=== PATIENT | male | born 1960 | race Caucasian/White ===

== ENCOUNTER 2017-06-15 21:20 | Inpatient (IN) | payer BC ==
[2017-06-15 23:21] LABS: Troponin I 6.575 ng/mL (< 0.028)
[2017-06-15] MEDS ORDERED: Acetaminophen 325 MG TAB PO PRN (23:24)
[2017-06-15] MEDS ORDERED: Senokot 8.6 MG TAB PO PRN (23:24)
[2017-06-15] MEDS ORDERED: Nitroglycerin 0.4 MG TAB (25 Tab Bottle) SL PRN (23:24)
[2017-06-15] MEDS ORDERED: Calcium Carbonate 500 MG ChewTAB PO PRN (23:24)
[2017-06-15] MEDS ORDERED: Morphine 5 MG/ML SYRINGE SLOW IVP PRN (23:24)
[2017-06-15] MEDS ORDERED: Enoxaparin Sodium 120 MG/0.8 ML SYRINGE SC SCH (23:45)
[2017-06-15] MEDS ORDERED: Metoprolol Tartrate 25 MG TAB PO SCH (23:45)
[2017-06-16] MEDS: Nitroglycerin 2% Ointment 1 INCH/1 GM Packet TOP SCH ×5 (00:11→23:48)
[2017-06-16] MEDS: Sodium Chloride 0.9% 1,000 ML IV SCH ×2 (00:14→20:45)
--- NOTE | 2017-06-16 00:49 | HP ---
DATE OF ADMISSION: 06/15/2017 Patient was seen and examined on 06/15/2017 CHIEF COMPLAINT: Chest discomfort. PRIMARY CARE PHYSICIAN: Dr. Montero. Patient is a transfer from [facility]. HISTORY OF PRESENT ILLNESS: Patient is a 56-year-old male with obstructive sleep apnea, diabetes gadiel litus type 2, and hyperlipidemia who presented to the above emergency room with chest discomfort that started this afternoon. It was pressure-like, substernal, radiating to his left arm. It was 8/10 i nitially and improved with nitroglycerin. He felt short of breath; however, denies any nausea, vomit ing, or diaphoresis. No recent immobilization, travel, syncope reported. In the emergency room, his EKG showed normal sinus rhythm without significant ST-T wave changes. Kalie st x-ray was negative. His initial troponin was negative. He was transferred to this facility for h ospital admission. PAST MEDICAL HISTORY: 1. Diabetes mellitus, type 2. 2. Hyperlipidemia. 3. Obesity with BMI 32.7. 4. Obstructive sleep apnea. 5. Anxiety. 6. Chronic low back pain. PAST SURGICAL HISTORY: 1. Back surgery x2. 2. Hernia repair. 3. Laparoscopic sleeve gastrectomy. 4. Left shoulder surgery. ALLERGIES: No known drug allergies. CURRENT HOME MEDICATIONS: Family to bring accurate list of medications. According to Dr. Montero's o ffice record, patient takes bupropion 100 mg daily, Celebrex 200 mg daily, citalopram 40 mg daily, an d testosterone injectable every 2 weeks. SOCIAL HISTORY: Patient currently lives at home with his family. He is a former tobacco user (chewe d tobacco). He denies any drug use. He drinks alcohol socially. FAMILY HISTORY: Negative for premature coronary artery disease. REVIEW OF SYSTEMS: The following complete review of systems was negative, unless otherwise mentioned in the HPI or below: Constitutional: Weight loss or gain, ability to conduct usual activities. Sk in: Rash, itching. Eyes: Double vision, pain. ENT/Mouth: Nose bleeding, neck stiffness, pain, te nderness. Cardiovascular: Palpitations, dyspnea on exertion, orthopnea. Respiratory: Shortness of breath, wheezing, cough, hemoptysis, fever or night sweats. Gastrointestinal: Poor appetite, abdom inal pain, heartburn, nausea, vomiting, constipation, or diarrhea. Genitourinary: Urgency, frequenc y, dysuria, nocturia. Musculoskeletal: Pain, swelling. Neurologic/Psychiatric: Anxiety, depressio n. Allergy/Immunologic: Skin rash, bleeding tendency. PHYSICAL EXAMINATION: VITAL SIGNS: In the emergency room, temperature 98.4, respirations 16, pulse rate of 59, blood press ure 119/73 with O2 saturation 98% on room air. GENERAL: A 56-year-old male in no apparent distress. Still has some discomfort around 3/10. HEENT: Head atraumatic, normocephalic. Sclerae anicteric. Moist mucous membranes. No oral lesion. NECK: Supple, no JVD appreciated. No carotid bruit. LUNGS: Clear to auscultation bilaterally. HEART: S1, S2 present. Regular rate and rhythm. No murmur, rubs, or gallops appreciated. No repro ducible chest wall tenderness. ABDOMEN: Soft, nontender, bowel sounds present. EXTREMITIES: No edema or calf tenderness. NEUROLOGIC: Grossly nonfocal, moves all four extremities. PSYCHIATRY: Alert, awake, oriented x3. SKIN: Warm and dry. LYMPH NODES: No palpable lymph nodes in the neck. PERIPHERAL VASCULAR: Radial pulses palpable bilaterally. MUSCULOSKELETAL: No joint swelling or tenderness. LABORATORY AND X-RAY FINDINGS: Labs from [facility], CBC showed WBC 6.6 with hemog lobin 15.6, platelet 204. Chemistries showed sodium 140, potassium 4.1, chloride 103, bicarbonate 27 , creatinine was 0.8, BUN of 16. Initial troponin was 0.17 with CK-MB 5.5. EKG by my review as disc ussed above. Chest x-ray at the outside facility was negative for infiltrate. Repeat troponin at th is time is 6.575 at 2241. This was after I evaluated the patient. IMPRESSION AND PLAN: 1. Non-ST elevation myocardial infarction. 2. Obesity with a BMI 32.7. 3. Diabetes mellitus, type 2. 4. Dyslipidemia. 5. Obstructive sleep apnea. 6. Depression. 7. Degenerative joint disease. PLAN: Patient will be monitored in the telemetry unit. Cardiology will be consulted. We will maribell nue aspirin. We will start him on 1 mg/kg of Lovenox. We will add low-dose beta blockers. We will start him on Lipitor at low dose and titrate in next couple of days. We will consider adding LIZETH inh ibitor in a.m. depending on his blood pressure. We will keep him n.p.o. past midnight. Fasting lipi d profile last month showed triglyceride 151, cholesterol 247, LDL of 173 with HDL of 44. Plan of care was discussed with the patient. He stated understanding.
[2017-06-16 05:46] LABS: #Basophils 0.1 thou/uL (0.0-0.2); #Eosinphils 0.4 thou/uL (0.0-0.7); #Lymphocytes 2.2 thou/uL (1.20-3.40); #Monocytes 0.6 thou/uL (0.11-0.59); #Neutrophils 4.4 thou/uL (1.40-6.50); %Basophils 0.8 % (0.0-1.0); %Eosinophils 4.9 % (0.0-10.0); %Lymphocytes 28.9 % (21.0-51.0); %Monocytes 7.6 % (0.0-10.0); %Neutrophils 57.9 % (42.0-75.0); Hemoglobin 14.4 g/dL (14.0-18.0); Mean Corpuscular HGB CONC 34.3 g/dL (32.0-36.0); Mean Corpuscular Hemoglobin 32.9 pg (27.0-31.0); Mean Platelet Volume 6.8 fL (7.4-10.4); Platelet Count 180 thou/uL (130-400); RBC Distribution Width 11.6 % (11.5-14.5); Red Blood Cell (RBC) Count 4.36 mill/uL (4.70-6.10); White Blood Cell (WBC) Count 7.6 thou/uL (4.8-10.8)
[2017-06-16 05:51] LABS: Anion Gap 10 mmol/L (10-20); BUN (Urea Nitrogen) 17 mg/dL (8.4-25.7); Calc. Creatinine Clearance 151 mL/min (70-130); Calcium 8.7 mg/dL (7.8-10.44); Carbon Dioxide 30 mmol/L (22-29); Chloride 105 mmol/L (98-107); Estimated GFR-MDRD 89; Glucose 95 mg/dL (70-105); Magnesium 2.2 mg/dL (1.6-2.6); Potassium 4.1 mmol/L (3.5-5.1); Sodium 141 mmol/L (136-145)
[2017-06-16 06:00] LABS: CKMB 63.7 ng/mL (0-6.6)
[2017-06-16] MEDS ORDERED: Temazepam 15 MG CAP PO PRN (07:03)
[2017-06-16] MEDS ORDERED: Sodium Chloride 0.65% Nasal 44 ML BOT EA NARE PRN (07:03)
[2017-06-16] MEDS ORDERED: Ondansetron HCl/PF 4 MG/2 ML Vial IVP PRN (07:03)
[2017-06-16] MEDS ORDERED: HYDROcodone/Acetaminophen 5/325 mg Tablet PO PRN (07:03)
[2017-06-16] MEDS ORDERED: Milk Of Magnesia 30 ML UDCUP PO PRN (07:03)
[2017-06-16] MEDS ORDERED: Loperamide HCl 2 MG CAP PO PRN (07:03)
[2017-06-16] MEDS ORDERED: Artificial Tears 18 DROP/0.9 ML EA EYE PRN (07:03)
[2017-06-16] MEDS ORDERED: Eucerin (Mineral Oil/Petrolatum,White) 30 gm Jar TOP PRN (07:03)
[2017-06-16] MEDS ORDERED: Ondansetron ODT 4 MG TAB PO PRN (07:03)
[2017-06-16] MEDS ORDERED: Mag-Al 1200 mg/1200 mg/30 ML UDCUP PO PRN (07:03)
[2017-06-16] MEDS ORDERED: Diabetic Tussin 200 MG/10 ML UDCUP PO PRN (07:03)
[2017-06-16] MEDS ORDERED: hydrALAZINE 20 MG/ML VIAL SLOW IVP PRN (07:03)
[2017-06-16] MEDS ORDERED: Chloraseptic Spray 180 ml Bottle PO PRN (07:03)
[2017-06-16] MEDS ORDERED: Loratadine 10 MG TAB PO PRN (07:03)
[2017-06-16] MEDS ORDERED: CITALOPRAM HYDROBROMIDE 40 MG PO SCH (09:00)
--- NOTE | 2017-06-16 09:17 | PDOC.PN ---
- Subjective Encounter Start Date: 06/16/17 Encounter Start Time: 07:40 -: old records requested/rev pt denies chest pain,dyspnea, palpitation Patient seen and examined. No new complaints. No overnight events - Objective Resuscitation Status: Resuscitation Status FULL:Full Resuscitation MAR Reviewed: Yes Vital Signs & Weight: Vital Signs (12 hours) Temp Pulse Resp BP BP Pulse Ox 06/16/17 07:10 98.5 F 74 18 99 06/16/17 07:05 98.5 F 74 18 107/61 99 06/16/17 05:13 94 L 06/16/17 04:00 97.8 F 54 L 16 104/62 94 L 06/15/17 23:45 96 F L 74 18 134/74 95 06/15/17 23:26 97.7 F 65 18 130/75 95 Weight Weight 247 lb 6.4 oz I&O: 06/15/17 06/16/17 06/17/17 05:59 06:59 06:59 Intake Total Output Total Balance Result Diagrams: 06/16/17 04:51 06/16/17 04:51 EKG Reviewed by me: Yes (NSR) Phys Exam - Physical Examination Constitutional: NAD HEENT: PERRLA, moist MMs, sclera anicteric Neck: no JVD, supple Respiratory: no wheezing, no rales, no rhonchi Cardiovascular: RRR, no significant murmur, no rub Gastrointestinal: soft, non-tender, no distention, positive bowel sounds Musculoskeletal: no edema, pulses present Neurological: non-focal, normal sensation, moves all 4 limbs Psychiatric: normal affect, A&O x 3 Skin: no rash, normal turgor Dx/Plan (1) NSTEMI (non-ST elevated myocardial infarction) Code(s): I21.4 - NON-ST ELEVATION (NSTEMI) MYOCARDIAL INFARCTION Status: Acute (2) Anxiety and depression Code(s): F41.8 - OTHER SPECIFIED ANXIETY DISORDERS Status: Chronic (3) Chronic low back pain Code(s): M54.5 - LOW BACK PAIN; G89.29 - OTHER CHRONIC PAIN Status: Chronic (4) DJD (degenerative joint disease) Code(s): M19.90 - UNSPECIFIED OSTEOARTHRITIS, UNSPECIFIED SITE Status: Chronic (5) Diabetes type 2, controlled Code(s): E11.9 - TYPE 2 DIABETES MELLITUS WITHOUT COMPLICATIONS Status: Chronic (6) OLESYA (obstructive sleep apnea) Code(s): G47.33 - OBSTRUCTIVE SLEEP APNEA (ADULT) (PEDIATRIC) Status: Chronic (7) Obesity (BMI 30.0-34.9) Code(s): E66.9 - OBESITY, UNSPECIFIED Status: Chronic - Plan cont current plan of care * medication reviewed as below * symptomatic treatment * cardiology consulted * echo * currently on medical therapy for nstemi * will need cardiac cath * discussed with family. Review of Systems - Review of Systems Constitutional: negative: fever, chills, sweats, weakness, malaise, other Eyes: negative: Pain, Vision Change, Conjunctivae Inflammation, Eyelid Inflammation, Redness, Other ENT: negative: Ear Pain, Ear Discharge, Nose Pain, Nose Discharge, Nose Congestion, Mouth Pain, Mouth Swelling, Throat Pain, Throat Swelling, Other Respiratory: negative: Cough, Dry, Shortness of Breath, Hemoptysis, SOB with Excertion, Pleuritic Pain, Sputum, Wheezing Cardiovascular: negative: chest pain, palpitations, orthopnea, paroxysmal nocturnal dyspnea, edema, light headedness, other Gastrointestinal: negative: Nausea, Vomiting, Abdominal Pain, Diarrhea, Constipation, Melena, Hematochezia, Other Genitourinary: negative: Dysuria, Frequency, Incontinence, Hematuria, Retention , Other Musculoskeletal: negative: Neck Pain, Shoulder Pain, Arm Pain, Back Pain, Hand Pain, Leg Pain, Foot Pain, Other Skin: negative: Rash, Lesions, Prince, Bruising, Other - Medications/Allergies Allergies/Adverse Reactions: Allergies Allergy/AdvReac Type Severity Reaction Status Date / Time No Known Allergies Allergy Verified 06/16/17 00:22 Medications: Current Medications Acetaminophen (Tylenol) 650 mg PO Q4H PRN PRN Reason: Headache/Fever or Pain Hydrocodone Bitart/Acetaminophen ([place] 5/325) 1 tab PO Q4H PRN PRN Reason: Moderate Pain (4-6) Al Hydroxide/Mg Hydroxide (Maalox) 15 ml PO Q4H PRN PRN Reason: Heartburn or Indigestion Artificial Tears (Tears Naturale) 0 drop EA EYE PRN PRN PRN Reason: Dry Eyes Aspirin (Aspirin) 325 mg PO DAILY COUNT [facility]CLUDES [facility] Atorvastatin Calcium (Lipitor) 40 mg PO HS COUNT INCLUDES THE [facility] Bupropion HCl (Wellbutrin) 100 mg PO DAILY COUNT INCLUDES [facility] Calcium Carbonate (Tums) 1,000 mg PO Q4H PRN PRN Reason: Heartburn or Indigestion Citalopram Hydrobromide (Celexa) 40 mg PO DAILY COUNT INCLUDES [facility] Docusate Sodium (Colace) 100 mg PO BID COUNT INCLUDES THE [facility] Enoxaparin Sodium (Lovenox) 110 mg SC 0900,2100 COUNT INCLUDES THE [facility] Famotidine (Pepcid) 20 mg PO BID COUNT INCLUDES THE [facility] Guaifenesin (Robitussin Sf) 200 mg PO Q4H PRN PRN Reason: Cough Hydralazine HCl (Apresoline) 10 mg SLOW IVP Q4H PRN PRN Reason: Systolic BP > 180 Sodium Chloride (Normal Saline 0.9%) 1,000 mls @ 50 mls/hr IV .Q20H COUNT INCLUDES THE [facility] Last Admin: 06/16/17 00:14 Dose: 1,000 mls Loperamide HCl (Imodium) 2 mg PO PRN PRN PRN Reason: Diarrhea/Loose Stools Loratadine (Claritin) 10 mg PO DAILYPRN PRN PRN Reason: Sinus Symptoms Magnesium Hydroxide (Milk Of Magnesium) 30 ml PO DAILYPRN PRN PRN Reason: Constipation Metoprolol Tartrate (Lopressor) 12.5 mg PO BID COUNT INCLUDES THE [facility] Mineral Oil/White Petrolatum (Eucerin Cream) 0 gm TOP BIDPRN PRN PRN Reason: Dry Skin Morphine Sulfate (Morphine) 2 mg SLOW IVP Q5MIN PRN PRN Reason: Chest Pain Stop: 06/16/17 23:25 Nitroglycerin (Nitrostat) 0.4 mg SL Q5MIN PRN PRN Reason: Chest Pain Nitroglycerin (Nitro-Bid 2% Ointment) 0.5 inch TOP Q6HR COUNT INCLUDES [facility] Last Admin: 06/16/17 06:55 Dose: 0.5 inch Ondansetron HCl (Zofran Odt) 4 mg PO Q6H PRN PRN Reason: Nausea/Vomiting Ondansetron HCl (Zofran) 4 mg IVP Q6H PRN PRN Reason: Nausea/Vomiting Phenol (Chloraseptic [place] 180 Ml Bot) 0 ml PO PRN PRN PRN Reason: Sore Throat Senna (Senokot) 2 tab PO HSPRN PRN PRN Reason: Constipation Sodium Chloride (Flush - Normal Saline) 10 ml IVF Q12HR COUNT INCLUDES THE [facility] Sodium Chloride (Flush - Normal Saline) 10 ml IVF PRN PRN PRN Reason: Saline Flush Sodium Chloride ([place] Nasal [place] 0.65%) 0 ml EA NARE QIDPRN PRN PRN Reason: Nasal Congestion Temazepam (Restoril) 15 mg PO HSPRN PRN PRN Reason: Insomnia
[2017-06-16] MEDS: Citalopram 20 MG TAB PO SCH (10:29)
[2017-06-16] MEDS: Famotidine 20 MG TAB PO SCH ×2 (10:29→20:46)
[2017-06-16] MEDS: Enoxaparin Sodium 120 MG/0.8 ML SYRINGE SC SCH ×2 (10:29→20:46)
[2017-06-16] MEDS: Aspirin 325 MG TAB PO SCH (10:30)
[2017-06-16] MEDS: Docusate 100 MG CAP PO SCH ×2 (10:30→20:46)
[2017-06-16] MEDS: Metoprolol Tartrate 25 MG TAB PO SCH ×2 (10:30→20:46)
[2017-06-16] MEDS: buPROPion HCl 100 MG TAB PO SCH (10:31)
[2017-06-16] MEDS ORDERED: Diazepam 5 MG TAB PO SCH (12:00)
[2017-06-16] MEDS ORDERED: Communication Order-Pharmacy FS SCH (12:00)
--- NOTE | 2017-06-16 12:48 | CON ---
DATE OF CONSULTATION: 06/16/2017 REASON FOR CONSULTATION: Non-Q NV. HISTORY OF PRESENT ILLNESS: Mr. Rivas is a very pleasant 56-year-old gentleman. He states he recentl y had an episode of chest pain. This lasted up to 2 hours. He was given nitroglycerin and aspirin i n the ER with improvement. He states he has been pain free since 9:00 p.m. last evening. No previou s history of underlying coronary artery disease. PAST MEDICAL HISTORY: Diabetes mellitus, hyperlipidemia, obstructive sleep apnea and chronic low jodi k pain. PAST SURGICAL HISTORY: Sleeve gastrectomy, hernia repair, back surgery and left shoulder surgery. ALLERGIES: None. HOME MEDICATIONS: Include Celebrex, citalopram and testosterone. SOCIAL HISTORY: No current tobacco or alcohol use. REVIEW OF SYSTEMS: Ten-point review of systems is reviewed and as above, otherwise negative. PHYSICAL EXAMINATION: GENERAL: Patient is a pleasant male who is in no acute distress. The patient appears his stated age . VITAL SIGNS: Blood pressure 107/61, pulse 74 and temperature 98.5. NEUROLOGIC: The patient is alert and oriented x3 with no focal neurologic deficits. HEENT: Sclerae without icterus. Mouth has moist mucous membranes with normal pallor. NECK: No JVD. Carotid upstroke brisk. No bruits bilaterally. LUNGS: Clear to auscultation with unlabored respirations. BACK: No scoliosis or kyphosis. CARDIAC: Regular rate and rhythm with normal S1 and S2. No S3 or S4 noted. No significant rubs, mu rmurs, thrills, or gallops noted throughout the precordium. PMI is not displaced. There is no dori ternal heave. ABDOMEN: Soft, nontender, nondistended. No peritoneal signs present. No hepatosplenomegaly. No ab normal striae. EXTREMITIES: 2+ femoral and 2+ dorsalis pedis pulses. No cyanosis, clubbing, or edema. SKIN: No gross abnormalities. PERTINENT LABORATORY DATA: Hemoglobin 14.4 and hematocrit 41.9. Peak troponin 29.2, peak MB of 63 a nd creatinine 0.89. IMAGING DATA: EKG normal sinus rhythm, normal EKG. IMPRESSION: Non-Q myocardial infarction. RECOMMENDATIONS: Mr. Rivas does have multiple risks factors for underlying coronary artery disease. His troponin is elevated. His EKG is not felt to be suggestive of acute myocardial infarction. He h as received Lovenox in addition to aspirin and beta-brice therapy. At this point, I recommend sobeida nary angiography with possible PCI. I discussed the procedure in full detail with Mr. Rivas. Risks i ncluded, but are not limited to the following: , stroke, NV, need for emergency surgery, loss o f limb, bleeding, and infection, as well as a reaction to the dye causing kidney failure and needing long-term dialysis. I also discussed the risks of PCI to include all of the above including coronary dissection and perforation in addition to acute stent thrombosis and restenosis. All questions abou t the procedure were answered. Given the above, the patient agreed to proceed with coronary angiogra phy and possible PCI. All questions were answered. I also discussed drug-coated and nondrug coated stent placement. He does have chronic low back pain and I did answer multiple questions about the ba ck injections. At this point, if he decides to proceed with a drug-coated stent, there will be no ba ck injections for at least a year. He understands and would like to proceed with a drug-coated stent if needed. Further recommendations pending the above.
[2017-06-16 12:50] LABS: CKMB 57.2 ng/mL (0-6.6); Critical Call CKMBM RESULT DECREASING; Critical Call Chem Troponin I RESULT DECREASING; Troponin I 21.386 ng/mL (< 0.028)
[2017-06-16] MEDS: Atorvastatin Calcium 40 MG TAB PO SCH (20:46)
[2017-06-16] MEDS ORDERED: Atorvastatin Calcium 10 MG TAB PO SCH (21:00)
[2017-06-17] MEDS ORDERED: Lidocaine 1% (PF) 30 ML VIAL ONE (05:01)
[2017-06-17] MEDS: Nitroglycerin 2% Ointment 1 INCH/1 GM Packet TOP SCH ×3 (05:25→17:25)
[2017-06-17] MEDS: Famotidine 20 MG TAB PO SCH ×2 (05:26→21:35)
[2017-06-17] MEDS: Aspirin 325 MG TAB PO SCH (05:26)
[2017-06-17] MEDS: Docusate 100 MG CAP PO SCH ×2 (05:26→21:35)
[2017-06-17] MEDS: buPROPion HCl 100 MG TAB PO SCH (05:26)
[2017-06-17] MEDS: Citalopram 20 MG TAB PO SCH (05:26)
[2017-06-17] MEDS: Metoprolol Tartrate 25 MG TAB PO SCH ×2 (05:27→21:36)
[2017-06-17 05:49] LABS: #Eosinphils 0.5 thou/uL (0.0-0.7); #Lymphocytes 1.6 thou/uL (1.20-3.40); #Monocytes 0.5 thou/uL (0.11-0.59); #Neutrophils 3.8 thou/uL (1.40-6.50); %Basophils 0.7 % (0.0-1.0); %Eosinophils 7.1 % (0.0-10.0); %Lymphocytes 24.8 % (21.0-51.0); %Monocytes 7.7 % (0.0-10.0); %Neutrophils 59.7 % (42.0-75.0); Hemoglobin 14.3 g/dL (14.0-18.0); Mean Corpuscular Hemoglobin 32.8 pg (27.0-31.0); Mean Corpuscular Volume 93.7 fl (80.0-94.0); Mean Platelet Volume 6.7 fL (7.4-10.4); Platelet Count 170 thou/uL (130-400); RBC Distribution Width 11.5 % (11.5-14.5); Red Blood Cell (RBC) Count 4.36 mill/uL (4.70-6.10); White Blood Cell (WBC) Count 6.4 thou/uL (4.8-10.8)
[2017-06-17] MEDS ORDERED: Sodium Chloride 0.9% 1,000 ML IV SCH (06:00)
[2017-06-17 06:07] LABS: ALT (SGPT) 34 U/L (8-55); AST (SGOT) 53 U/L (5-34); Albumin 3.8 g/dL (3.5-5.0); Alkaline Phosphatase 54 U/L (40-150); Anion Gap 11 mmol/L (10-20); BUN (Urea Nitrogen) 16 mg/dL (8.4-25.7); Bilirubin, Total 0.6 mg/dL (0.2-1.2); Calc. Creatinine Clearance 165 mL/min (70-130); Calcium 8.8 mg/dL (7.8-10.44); Carbon Dioxide 27 mmol/L (22-29); Cardiac Risk 6.2 (Less than 4.5); Chloride 106 mmol/L (98-107); Cholesterol 181 mg/dl (< 200 Desired); Estimated GFR-MDRD Greater than 90; Globulin 1.8 g/dL (2.4-3.5); Glucose 88 mg/dL (70-105); HDL Cholesterol 29 mg/dL (>60 Neg Risk); LDL Cholesterol, Calculated 121 mg/dL; Potassium 3.9 mmol/L (3.5-5.1); Protein, Total 5.6 g/dL (6.0-8.3); Sodium 140 mmol/L (136-145); Triglycerides 155 mg/dL (Less than 150)
[2017-06-17] MEDS ORDERED: Midazolam HCl 2 mg/2 ml Vial ONE (06:23)
[2017-06-17] MEDS ORDERED: Fentanyl 100 MCG/2 ML VIAL ONE (06:23)
[2017-06-17] MEDS ORDERED: Acetaminophen/Codeine 30-300mg Tablet PO PRN ×2 (06:45)
[2017-06-17] MEDS ORDERED: Sodium Chloride 0.9% 200 ML IV SCH (06:45)
[2017-06-17] MEDS ORDERED: Nitroglycerin 0.4 MG TAB (25 Tab Bottle) SL PRN (06:45)
[2017-06-17] MEDS ORDERED: traMADol HCl 50 MG TAB PO PRN (06:45)
[2017-06-17] MEDS: Sodium Chloride 0.9% 1,000 ML IV SCH ×3 (07:26→21:37)
--- NOTE | 2017-06-17 09:44 | PDOC.PN ---
- Subjective Encounter Start Date: 06/17/17 Encounter Start Time: 07:50 Patient seen and examined. No new complaints. No overnight events s/p cardiac cath- found with multivessel cad - Objective Resuscitation Status: Resuscitation Status FULL:Full Resuscitation MAR Reviewed: Yes Vital Signs & Weight: Vital Signs (12 hours) Temp Pulse Resp BP Pulse Ox 06/17/17 07:30 98.4 F 70 16 123/73 96 06/17/17 06:44 96 06/17/17 04:15 98.2 F 74 16 128/68 93 L 06/16/17 23:50 67 118/72 Weight Weight 246 lb 11.2 oz I&O: 06/16/17 06/17/17 06/18/17 06:59 06:59 06:59 Intake Total 1963 Output Total 1050 Balance 913 Result Diagrams: 06/17/17 04:47 06/17/17 03:30 EKG Reviewed by me: Yes Phys Exam - Physical Examination Constitutional: NAD HEENT: PERRLA, moist MMs, sclera anicteric Neck: no JVD, supple Respiratory: no wheezing, no rales, no rhonchi Cardiovascular: RRR, no significant murmur, no rub Gastrointestinal: soft, non-tender, no distention, positive bowel sounds Musculoskeletal: no edema, pulses present Neurological: non-focal, normal sensation, moves all 4 limbs Psychiatric: normal affect, A&O x 3 Skin: no rash, normal turgor Dx/Plan (1) NSTEMI (non-ST elevated myocardial infarction) Code(s): I21.4 - NON-ST ELEVATION (NSTEMI) MYOCARDIAL INFARCTION Status: Acute (2) Anxiety and depression Code(s): F41.8 - OTHER SPECIFIED ANXIETY DISORDERS Status: Chronic (3) Chronic low back pain Code(s): M54.5 - LOW BACK PAIN; G89.29 - OTHER CHRONIC PAIN Status: Chronic (4) DJD (degenerative joint disease) Code(s): M19.90 - UNSPECIFIED OSTEOARTHRITIS, UNSPECIFIED SITE Status: Chronic (5) Diabetes type 2, controlled Code(s): E11.9 - TYPE 2 DIABETES MELLITUS WITHOUT COMPLICATIONS Status: Chronic (6) OLESYA (obstructive sleep apnea) Code(s): G47.33 - OBSTRUCTIVE SLEEP APNEA (ADULT) (PEDIATRIC) Status: Chronic (7) Obesity (BMI 30.0-34.9) Code(s): E66.9 - OBESITY, UNSPECIFIED Status: Chronic (8) 3-vessel coronary artery disease Status: Acute (9) Dyslipidemia Code(s): E78.5 - HYPERLIPIDEMIA, UNSPECIFIED Status: Chronic - Plan cont current plan of care, plan discussed w/ family * CABG recommended * medication reviewed as below * symptomatic treatment * currently on optimum medical therapy * discussed with . Review of Systems - Review of Systems Eyes: negative: Pain, Vision Change, Conjunctivae Inflammation, Eyelid Inflammation, Redness, Other ENT: negative: Ear Pain, Ear Discharge, Nose Pain, Nose Discharge, Nose Congestion, Mouth Pain, Mouth Swelling, Throat Pain, Throat Swelling, Other Respiratory: negative: Cough, Dry, Shortness of Breath, Hemoptysis, SOB with Excertion, Pleuritic Pain, Sputum, Wheezing Cardiovascular: negative: chest pain, palpitations, orthopnea, paroxysmal nocturnal dyspnea, edema, light headedness, other Gastrointestinal: negative: Nausea, Vomiting, Abdominal Pain, Diarrhea, Constipation, Melena, Hematochezia, Other Genitourinary: negative: Dysuria, Frequency, Incontinence, Hematuria, Retention , Other Musculoskeletal: negative: Neck Pain, Shoulder Pain, Arm Pain, Back Pain, Hand Pain, Leg Pain, Foot Pain, Other Skin: negative: Rash, Lesions, Prince, Bruising, Other - Medications/Allergies Allergies/Adverse Reactions: Allergies Allergy/AdvReac Type Severity Reaction Status Date / Time No Known Allergies Allergy Verified 06/16/17 00:22 Medications: Current Medications Acetaminophen (Tylenol) 650 mg PO Q4H PRN PRN Reason: Headache/Fever or Pain Acetaminophen/Codeine Phosphate (Tylenol #3) 1 tab PO Q4H PRN PRN Reason: Mild Pain (1-3) Acetaminophen/Codeine Phosphate (Tylenol #3) 2 tab PO Q4H PRN PRN Reason: Moderate Pain (4-6) Hydrocodone Bitart/Acetaminophen ([place] 5/325) 1 tab PO Q4H PRN PRN Reason: Moderate Pain (4-6) Al Hydroxide/Mg Hydroxide (Maalox) 15 ml PO Q4H PRN PRN Reason: Heartburn or Indigestion Artificial Tears (Tears Naturale) 0 drop EA EYE PRN PRN PRN Reason: Dry Eyes Aspirin (Aspirin) 325 mg PO DAILY [facility] Last Admin: 06/17/17 05:26 Dose: 325 mg Atorvastatin Calcium (Lipitor) 40 mg PO HS [facility] Last Admin: 06/16/17 20:46 Dose: 40 mg Bupropion HCl (Wellbutrin) 100 mg PO DAILY [facility] Last Admin: 06/17/17 05:26 Dose: 100 mg Calcium Carbonate (Tums) 1,000 mg PO Q4H PRN PRN Reason: Heartburn or Indigestion Citalopram Hydrobromide (Celexa) 40 mg PO DAILY [facility] Last Admin: 06/17/17 05:26 Dose: 40 mg Diazepam (Valium) 5 mg PO WILLCALL [facility] Stop: 06/17/17 12:00 Last Admin: 06/17/17 05:51 Dose: 5 mg Docusate Sodium (Colace) 100 mg PO BID [facility] Last Admin: 06/17/17 05:26 Dose: 100 mg Famotidine (Pepcid) 20 mg PO BID [facility] Last Admin: 06/17/17 05:26 Dose: 20 mg Guaifenesin (Robitussin Sf) 200 mg PO Q4H PRN PRN Reason: Cough Hydralazine HCl (Apresoline) 10 mg SLOW IVP Q4H PRN PRN Reason: Systolic BP > 180 Sodium Chloride (Normal Saline 0.9%) 1,000 mls @ 100 mls/hr IV .Q10H [facility] Last Admin: 06/17/17 05:25 Dose: Not Given Sodium Chloride (Normal Saline 0.9%) 1,000 mls @ 125 mls/hr IV .Q8H [facility] Last Admin: 06/17/17 07:26 Dose: Not Given Loperamide HCl (Imodium) 2 mg PO PRN PRN PRN Reason: Diarrhea/Loose Stools Loratadine (Claritin) 10 mg PO DAILYPRN PRN PRN Reason: Sinus Symptoms Magnesium Hydroxide (Milk Of Magnesium) 30 ml PO DAILYPRN PRN PRN Reason: Constipation Metoprolol Tartrate (Lopressor) 12.5 mg PO BID [facility] Last Admin: 06/17/17 05:27 Dose: 12.5 mg Mineral Oil/White Petrolatum (Eucerin Cream) 0 gm TOP BIDPRN PRN PRN Reason: Dry Skin Miscellaneous Information (Communication Order-Pharmacy) 0 each FS ONE [facility] Stop: 06/17/17 12:00 Nitroglycerin (Nitrostat) 0.4 mg SL Q5MIN PRN PRN Reason: Chest Pain Nitroglycerin (Nitro-Bid 2% Ointment) 0.5 inch TOP Q6HR [facility] Last Admin: 06/17/17 05:25 Dose: 0.5 inch Nitroglycerin (Nitrostat) 0.4 mg SL Q5MIN PRN PRN Reason: Chest Pain Ondansetron HCl (Zofran Odt) 4 mg PO Q6H PRN PRN Reason: Nausea/Vomiting Ondansetron HCl (Zofran) 4 mg IVP Q6H PRN PRN Reason: Nausea/Vomiting Phenol (Chloraseptic [place] 180 Ml Bot) 0 ml PO PRN PRN PRN Reason: Sore Throat Senna (Senokot) 2 tab PO HSPRN PRN PRN Reason: Constipation Sodium Chloride (Flush - Normal Saline) 10 ml IVF Q12HR [facility] Last Admin: 06/17/17 05:27 Dose: Not Given Sodium Chloride (Flush - Normal Saline) 10 ml IVF PRN PRN PRN Reason: Saline Flush Sodium Chloride ([place] Nasal [place] 0.65%) 0 ml EA NARE QIDPRN PRN PRN Reason: Nasal Congestion Temazepam (Restoril) 15 mg PO HSPRN PRN PRN Reason: Insomnia Tramadol HCl (Ultram) 50 mg PO Q6H PRN PRN Reason: Moderate Pain (4-6)
[2017-06-17] MEDS ORDERED: Communication Order-Pharmacy FS SCH (10:57)
--- NOTE | 2017-06-17 11:15 | CON ---
DATE OF CONSULTATION: 06/17/2017 HISTORY: This is a 56-year-old gentleman with a positive family history of heart disease on his moth er's side who reports a history of elevated lipid levels in the past. He also has a remote history o f diabetes, but since his gastric bypass in 2013, has not been on medication for this. He presented with chest discomfort. EKG with a non-ST elevation WA with a CPK MB peaking about 64. He underwent cardiac catheterization today. This demonstrated 3-vessel coronary artery disease with about an 80% proximal right coronary artery lesion with diffusely diseased vessels distally with an 80% origin, PD A lesion and a mid 80% stenosis. His LAD demonstrated about a 70% stenosis, diagonal about 70% and c ircumflex consisted of a normal large ramus branch and then 2 distal OMs that had a stenosis prior to the bifurcation of about 90%, probably accounting for the infarct. His echo showed normal left vent ricular systolic function. PAST SURGICAL HISTORY: Includes a cervical spine surgery, back surgery, gastric sleeve in 2013, prev ious shoulder and hernia surgery. SOCIAL HISTORY: The patient is a nonsmoker. He is and accompanied by his . He works as a construction site crossing guard. ADDITIONAL PAST MEDICAL HISTORY: Includes obstructive sleep apnea. He denies any history of hyperte nsion. ALLERGIES: He has no known allergies. MEDICATIONS: Prior to admission include Celebrex, citalopram, Zocor 10 mg, Wellbutrin 100 mg. PHYSICAL EXAMINATION: VITAL SIGNS: Weight 246. Height 6 feet 1 inch. NECK: I did not appreciate any carotid bruits. LUNGS: Clear to auscultation. CARDIAC: Regular rate and rhythm. No gallops, no murmurs. ABDOMEN: Soft, nontender. No aneurysm, no organomegaly. EXTREMITIES: He has palpable posterior tibial pulses bilaterally with no peripheral edema. He has a right arm dominant with a good radial Walter's test on the left with rapid capillary fill. PLAN: The plan at this time is for multivessel bypass grafting. Potential targets include his LAD, possibly diagonal, distal circumflex, PDA, posterolateral. Informed consent has been obtained.
[2017-06-17 13:04] LABS: Hemoglobin A1c 4.9 % (4.0-6.0)
[2017-06-17] MEDS: Atorvastatin Calcium 40 MG TAB PO SCH (21:35)
[2017-06-18] MEDS: Nitroglycerin 2% Ointment 1 INCH/1 GM Packet TOP SCH ×3 (00:55→19:21)
[2017-06-18 05:14] VITALS: BMI 31.6
[2017-06-18] MEDS: Metoprolol Tartrate 25 MG TAB PO SCH (06:01)
[2017-06-18] MEDS: Sodium Chloride 0.9% 1,000 ML IV SCH ×3 (06:02→19:22)
[2017-06-18] MEDS ORDERED: Midazolam HCl 5 mg/5 ml Vial ONE ×2 (07:36→09:04)
[2017-06-18] MEDS ORDERED: Fentanyl 250 MCG/5 ML VIAL ONE ×2 (07:36)
[2017-06-18] MEDS ORDERED: Nitroglycerin 50 MG/250 ML BOT 250 ML ONE (07:37)
[2017-06-18] MEDS ORDERED: CEFAZOLIN/Water 2 GM/20 ML SYRINGE ONE (08:01)
[2017-06-18] MEDS ORDERED: Midazolam HCl 2 mg/2 ml Vial ONE (08:52)
[2017-06-18] MEDS ORDERED: Heparin 10,000 UNITS/1 ML VIAL 30,000 UNITS in Sodium Chloride 0.9% 1,000 ML FS SCH (09:00)
--- NOTE | 2017-06-18 09:15 | PDOC.PN ---
- Subjective Encounter Start Date: 06/18/17 Encounter Start Time: 06:00 -: old records requested/rev - Objective Resuscitation Status: Resuscitation Status FULL:Full Resuscitation MAR Reviewed: Yes Vital Signs & Weight: Vital Signs (12 hours) Temp Pulse Resp BP BP Pulse Ox 06/18/17 06:44 96 06/18/17 06:19 116 H 18 130/82 06/18/17 04:00 98.1 F 72 18 125/69 92 L 06/18/17 00:27 97.7 F 75 16 136/79 93 L Weight Weight 239 lb 14.4 oz I&O: 06/17/17 06/18/17 06/19/17 06:59 06:59 06:59 Intake Total 1963 1742 Output Total 1050 700 Balance 913 1042 Result Diagrams: 06/17/17 04:47 06/17/17 03:30 EKG Reviewed by me: Yes (nsr) Phys Exam - Physical Examination Constitutional: NAD HEENT: PERRLA, moist MMs, sclera anicteric Neck: no JVD, supple Respiratory: no wheezing, no rales, no rhonchi Cardiovascular: RRR, no significant murmur, no rub Gastrointestinal: soft, non-tender, no distention, positive bowel sounds Musculoskeletal: no edema, pulses present Neurological: non-focal, normal sensation, moves all 4 limbs Psychiatric: normal affect, A&O x 3 Skin: no rash, normal turgor Dx/Plan (1) NSTEMI (non-ST elevated myocardial infarction) Code(s): I21.4 - NON-ST ELEVATION (NSTEMI) MYOCARDIAL INFARCTION Status: Acute (2) Anxiety and depression Code(s): F41.8 - OTHER SPECIFIED ANXIETY DISORDERS Status: Chronic (3) Chronic low back pain Code(s): M54.5 - LOW BACK PAIN; G89.29 - OTHER CHRONIC PAIN Status: Chronic (4) DJD (degenerative joint disease) Code(s): M19.90 - UNSPECIFIED OSTEOARTHRITIS, UNSPECIFIED SITE Status: Chronic (5) Diabetes type 2, controlled Code(s): E11.9 - TYPE 2 DIABETES MELLITUS WITHOUT COMPLICATIONS Status: Chronic (6) OLESYA (obstructive sleep apnea) Code(s): G47.33 - OBSTRUCTIVE SLEEP APNEA (ADULT) (PEDIATRIC) Status: Chronic (7) Obesity (BMI 30.0-34.9) Code(s): E66.9 - OBESITY, UNSPECIFIED Status: Chronic (8) 3-vessel coronary artery disease Status: Acute (9) Dyslipidemia Code(s): E78.5 - HYPERLIPIDEMIA, UNSPECIFIED Status: Chronic - Plan cont current plan of care * plan for cabg today * post cabg CT surgeon will manage as per protocol * medication reviewed as below * symptomatic treatment. Review of Systems - Review of Systems Eyes: negative: Pain, Vision Change, Conjunctivae Inflammation, Eyelid Inflammation, Redness, Other ENT: negative: Ear Pain, Ear Discharge, Nose Pain, Nose Discharge, Nose Congestion, Mouth Pain, Mouth Swelling, Throat Pain, Throat Swelling, Other Respiratory: negative: Cough, Dry, Shortness of Breath, Hemoptysis, SOB with Excertion, Pleuritic Pain, Sputum, Wheezing Cardiovascular: negative: chest pain, palpitations, orthopnea, paroxysmal nocturnal dyspnea, edema, light headedness, other Gastrointestinal: negative: Nausea, Vomiting, Abdominal Pain, Diarrhea, Constipation, Melena, Hematochezia, Other Genitourinary: negative: Dysuria, Frequency, Incontinence, Hematuria, Retention , Other Musculoskeletal: negative: Neck Pain, Shoulder Pain, Arm Pain, Back Pain, Hand Pain, Leg Pain, Foot Pain, Other Skin: negative: Rash, Lesions, Prince, Bruising, Other - Medications/Allergies Allergies/Adverse Reactions: Allergies Allergy/AdvReac Type Severity Reaction Status Date / Time No Known Allergies Allergy Verified 06/16/17 00:22 Medications: Current Medications Acetaminophen (Tylenol) 650 mg PO Q4H PRN PRN Reason: Headache/Fever or Pain Acetaminophen/Codeine Phosphate (Tylenol #3) 1 tab PO Q4H PRN PRN Reason: Mild Pain (1-3) Acetaminophen/Codeine Phosphate (Tylenol #3) 2 tab PO Q4H PRN PRN Reason: Moderate Pain (4-6) Hydrocodone Bitart/Acetaminophen ([place] 5/325) 1 tab PO Q4H PRN PRN Reason: Moderate Pain (4-6) Last Admin: 06/17/17 17:25 Dose: 1 tab Al Hydroxide/Mg Hydroxide (Maalox) 15 ml PO Q4H PRN PRN Reason: Heartburn or Indigestion Artificial Tears (Tears Naturale) 0 drop EA EYE PRN PRN PRN Reason: Dry Eyes Aspirin (Aspirin) 325 mg PO DAILY [facility] Last Admin: 06/17/17 05:26 Dose: 325 mg Atorvastatin Calcium (Lipitor) 40 mg PO HS [facility] Last Admin: 06/17/17 21:35 Dose: 40 mg Bupropion HCl (Wellbutrin) 100 mg PO DAILY [facility] Last Admin: 06/17/17 05:26 Dose: 100 mg Calcium Carbonate (Tums) 1,000 mg PO Q4H PRN PRN Reason: Heartburn or Indigestion Citalopram Hydrobromide (Celexa) 40 mg PO DAILY [facility] Last Admin: 06/17/17 05:26 Dose: 40 mg Docusate Sodium (Colace) 100 mg PO BID [facility] Last Admin: 06/17/17 21:35 Dose: 100 mg Famotidine (Pepcid) 20 mg PO BID [facility] Last Admin: 06/17/17 21:35 Dose: 20 mg Guaifenesin (Robitussin Sf) 200 mg PO Q4H PRN PRN Reason: Cough Hydralazine HCl (Apresoline) 10 mg SLOW IVP Q4H PRN PRN Reason: Systolic BP > 180 Sodium Chloride (Normal Saline 0.9%) 1,000 mls @ 125 mls/hr IV .Q8H [facility] Last Admin: 06/18/17 06:02 Dose: 1,000 mls Heparin Sodium (Porcine) 30, (000 units/ Sodium Chloride) 1,003 mls @ 0 mls/hr FS WILLCALL [facility] PRN Reason: As Directed Stop: 06/18/17 12:00 Phenylephrine HCl 10 mg/ (Sodium Chloride) 251 mls @ 0 mls/hr IVPB INF [facility]; As Directed PRN Reason: Protocol Loperamide HCl (Imodium) 2 mg PO PRN PRN PRN Reason: Diarrhea/Loose Stools Loratadine (Claritin) 10 mg PO DAILYPRN PRN PRN Reason: Sinus Symptoms Magnesium Hydroxide (Milk Of Magnesium) 30 ml PO DAILYPRN PRN PRN Reason: Constipation Metoprolol Tartrate (Lopressor) 12.5 mg PO BID [facility] Last Admin: 06/18/17 06:01 Dose: 12.5 mg Mineral Oil/White Petrolatum (Eucerin Cream) 0 gm TOP BIDPRN PRN PRN Reason: Dry Skin Miscellaneous Information (Communication Order-Pharmacy) 1 each FS ASDIR [facility] Nitroglycerin (Nitrostat) 0.4 mg SL Q5MIN PRN PRN Reason: Chest Pain Nitroglycerin (Nitro-Bid 2% Ointment) 0.5 inch TOP Q6HR [facility] Last Admin: 06/18/17 06:01 Dose: 0.5 inch Nitroglycerin (Nitrostat) 0.4 mg SL Q5MIN PRN PRN Reason: Chest Pain Ondansetron HCl (Zofran Odt) 4 mg PO Q6H PRN PRN Reason: Nausea/Vomiting Ondansetron HCl (Zofran) 4 mg IVP Q6H PRN PRN Reason: Nausea/Vomiting Phenol (Chloraseptic Angie 180 Ml Bot) 0 ml PO PRN PRN PRN Reason: Sore Throat Senna (Senokot) 2 tab PO HSPRN PRN PRN Reason: Constipation Sodium Chloride (Flush - Normal Saline) 10 ml IVF Q12HR [facility] Last Admin: 06/17/17 21:37 Dose: 10 ml Sodium Chloride (Flush - Normal Saline) 10 ml IVF PRN PRN PRN Reason: Saline Flush Sodium Chloride ([place] Nasal Angie 0.65%) 0 ml EA NARE QIDPRN PRN PRN Reason: Nasal Congestion Temazepam (Restoril) 15 mg PO HSPRN PRN PRN Reason: Insomnia Tramadol HCl (Ultram) 50 mg PO Q6H PRN PRN Reason: Moderate Pain (4-6)
[2017-06-18] MEDS ORDERED: Albumin 5% 0 ML ONE (09:37)
[2017-06-18] MEDS ORDERED: Iopamidol 370 76% 100 ML VIAL ONE (10:30)
[2017-06-18] MEDS ORDERED: Insulin Regular 300 UNITS/3 ML VIAL ONE ×3 (13:07→15:59)
[2017-06-18] MEDS: Morphine 4 MG/ML VIAL ONE ×2 (14:52→14:56)
[2017-06-18 15:11] LABS: Actual Bicarbonate (HCO3a) 24.6 mEq/L (22-26); Base Excess (BEa) -1.4 mEq/L (0 (+/-) 2.5); CO2 Tension 46.1 mmHg (35.0-45.0); Hematocrit-ABG 39.7 % (42.0-52.0); Hemoglobin (Hb) 14.5 g/dL (14.0-18.0); O2 Tension (PaO2) 83.7 mmHg (80.0-100.0); pH, Arterial 7.35 (7.35-7.45)
[2017-06-18] MEDS ORDERED: HYDROcodone/Acetaminophen 5/325 mg Tablet PO PRN (15:11)
[2017-06-18] MEDS ORDERED: Bisacodyl 5 MG TAB PO PRN (15:11)
[2017-06-18] MEDS ORDERED: Ondansetron HCl/PF 4 MG/2 ML Vial IVP PRN (15:11)
[2017-06-18] MEDS ORDERED: Phenylephrine 10 MG/NS 250 ML 250 ML IVPB PRN (15:11)
[2017-06-18] MEDS ORDERED: Potassium Chloride 20 MEQ/100 ML PREMIX BAG IVPB PRN (15:11)
[2017-06-18] MEDS ORDERED: Nitroglycerin 50 MG/250 ML BOT 250 ML IVPB PRN (15:11)
[2017-06-18] MEDS ORDERED: Guaifenesin DM 100-10/5 ML UDCUP PO PRN (15:11)
[2017-06-18] MEDS ORDERED: hydrALAZINE 20 MG/ML VIAL SLOW IVP PRN (15:11)
[2017-06-18] MEDS ORDERED: Acetaminophen 325 MG TAB PO PRN (15:11)
[2017-06-18] MEDS ORDERED: Fentanyl 100 MCG/2 ML VIAL SLOW IVP PRN ×2 (15:11)
[2017-06-18] MEDS ORDERED: Promethazine HCl 25 MG/ML VIAL IM PRN (15:11)
[2017-06-18] MEDS ORDERED: Hetastarch 6% 500 ML 500 ML IVPB PRN (15:11)
[2017-06-18] MEDS ORDERED: DOPamine 400 MG/D5W 250 ML 250 ML IVPB PRN (15:11)
[2017-06-18] MEDS ORDERED: Bisacodyl 10 MG SUPP PR PRN (15:11)
[2017-06-18] MEDS ORDERED: Mag-Al 1200 mg/1200 mg/30 ML UDCUP PO PRN (15:11)
[2017-06-18] MEDS ORDERED: Morphine 4 MG/ML VIAL SLOW IVP PRN (15:11)
[2017-06-18] MEDS ORDERED: Post-Op Insulin Drip Protocol IVPB ONE (15:11)
[2017-06-18 15:12] LABS: Calcium, Ionized 1.1 mmol/L (1.12-1.30)
[2017-06-18 15:13] LABS: ALV-art Gradient 286.475 (0-20); Puncture Site LINE
[2017-06-18] MEDS ORDERED: Magnesium 2 GM/NS 0.9% 100 ML 2 GM in Premix Bag 1 BAG IVPB SCH (15:15)
[2017-06-18 15:19] LABS: #Eosinphils 0.2 thou/uL (0.0-0.7); #Lymphocytes 1.2 thou/uL (1.20-3.40); #Monocytes 1.3 thou/uL (0.11-0.59); #Neutrophils 13.3 thou/uL (1.40-6.50); %Basophils 0.2 % (0.0-1.0); %Eosinophils 1.2 % (0.0-10.0); %Lymphocytes 7.5 % (21.0-51.0); %Monocytes 8.1 % (0.0-10.0); %Neutrophils 83.1 % (42.0-75.0); Hemoglobin 14.7 g/dL (14.0-18.0); Mean Corpuscular HGB CONC 34.9 g/dL (32.0-36.0); Mean Corpuscular Hemoglobin 32.9 pg (27.0-31.0); Mean Corpuscular Volume 94.2 fl (80.0-94.0); Mean Platelet Volume 6.3 fL (7.4-10.4); Platelet Count 166 thou/uL (130-400); RBC Distribution Width 11.7 % (11.5-14.5); Red Blood Cell (RBC) Count 4.47 mill/uL (4.70-6.10)
[2017-06-18 15:25] LABS: INR-International Normal Ratio 1.3; PTT 29.3 SEC (22.9-36.1); Prothrombin Time 16.7 SEC (12.0-14.7)
[2017-06-18 15:27] LABS: Anion Gap 9 mmol/L (10-20); BUN (Urea Nitrogen) 13 mg/dL (8.4-25.7); Calc. Creatinine Clearance 159 mL/min (70-130); Calcium 7.6 mg/dL (7.8-10.44); Carbon Dioxide 23 mmol/L (22-29); Chloride 110 mmol/L (98-107); Estimated GFR-MDRD Greater than 90; Glucose 136 mg/dL (70-105); Potassium 4.3 mmol/L (3.5-5.1); Sodium 138 mmol/L (136-145)
--- NOTE | 2017-06-18 15:55 | RAD ---
PORTABLE CHEST ONE VIEW: 06/18/17 at 2:43 p.m. HISTORY: Postop open heart surgery. FINDINGS/IMPRESSION: There are changes of median sternotomy. Endotracheal tube is seen with tip at the level of the clavic ular heads. Heart size is normal. No lobar consolidation, pneumothoraces or pleural effusions are see n. There is no evidence of wiley pulmonary edema. POS: [facility]
[2017-06-18] MEDS ORDERED: Dextrose 50% Abboject 50 ML SYRINGE SLOW IVP PRN (15:56)
[2017-06-18] MEDS ORDERED: Dextrose 5% in Water 1,000 ML IV PRN (15:56)
[2017-06-18 17:12] LABS: Actual Bicarbonate (HCO3a) 21.9 mEq/L (22-26); Base Excess (BEa) -3.2 mEq/L (0 (+/-) 2.5); CO2 Tension 39.8 mmHg (35.0-45.0); Hematocrit-ABG 40.7 % (42.0-52.0); Hemoglobin (Hb) 14.6 g/dL (14.0-18.0); O2 Tension (PaO2) 69.9 mmHg (80.0-100.0); pH, Arterial 7.36 (7.35-7.45)
[2017-06-18 17:13] LABS: Analyzer IN Cardio ER; Calcium, Ionized 1.1 mmol/L (1.12-1.30); Puncture Site LINE
[2017-06-18] MEDS: CEFAZOLIN/Water 2 GM/20 ML SYRINGE SLOW IVP SCH (17:18)
[2017-06-18] MEDS ORDERED: Vecuronium 10 MG VIAL ONE (17:21)
[2017-06-18] MEDS ORDERED: Aminocaproic Acid 5 GM/20 ML VIAL ONE (17:21)
[2017-06-18] MEDS ORDERED: Calcium Chloride 1 GM/10 ML Abboject SYRINGE ONE (17:21)
[2017-06-18] MEDS ORDERED: Succinylcholine Chloride 20 MG/ML 10 ml SYRINGE FS ONE (17:21)
[2017-06-18] MEDS ORDERED: PROPOFOL 200 MG/20 ML VIAL ONE (17:21)
[2017-06-18] MEDS ORDERED: Lidocaine 2% PF 100 mg/5 ml Syringe ONE (17:21)
[2017-06-18] MEDS ORDERED: Heparin 30,000 units/30 ml VIAL ONE (17:21)
[2017-06-18] MEDS ORDERED: Potassium Chloride 60 MEQ/30 ML VIAL ONE (17:21)
[2017-06-18] MEDS ORDERED: Cardioplegic Soln 1,000 ML BAG ONE (17:21)
[2017-06-18] MEDS ORDERED: Thrombin 5000 UNITS/5 ML VIAL ONE (17:21)
[2017-06-18] MEDS ORDERED: Heparin 5,000 UNITS/ML VIAL ONE (17:21)
[2017-06-18] MEDS ORDERED: Protamine Sulfate 250 MG/25 ML VIAL ONE (17:21)
[2017-06-18] MEDS ORDERED: Papaverine 60 MG/2 ML VIAL ONE (17:21)
[2017-06-18] MEDS ORDERED: Magnesium 5 GM/10 ML VIAL ONE (17:21)
[2017-06-18] MEDS ORDERED: Lidocaine 1% PF 5 ML VIAL ONE (17:21)
[2017-06-18] MEDS ORDERED: PHENYLEPHRINE-NS 100 MCG/ML 10 ML SYRINGE ONE (17:21)
[2017-06-18] MEDS: Ketorolac Tromethamine 30 MG/ML VIAL IVP SCH (17:22)
--- NOTE | 2017-06-18 18:52 | PDOC.CTH ---
Cardiology Progress Note - Subjective he underwent CABG earlier today. He is now extubated and only concern is chest pain around the surgical site. - Objective Vital Signs Temp Pulse Resp BP Pulse Ox 06/18/17 16:30 17 06/18/17 15:20 97.1 F L 77 14 100 06/18/17 14:45 77 144/66 H Weight 239 lb 14.4 oz 06/17/17 06/18/17 06/19/17 06:59 06:59 06:59 Intake Total 1963 1742 769 Output Total 0288 765 8122 Balance 913 1042 -616 - Physical Examination General/Neuro: alert & oriented x3, NAD Neck: no JVD present Lungs: unlabored respirations Heart: RRR, other: (3 component rub.) Abdomen: NT/ND Extremities: + edema B (1+) - Telemetry Telemetry Rhythm: NSR - Labs Result Diagrams: 06/18/17 15:01 06/18/17 15:01 Troponin/CKMB CK-MB (CK-2) 57.2 ng/mL (0-6.6) H* 06/16/17 11:55 Troponin I 21.386 ng/mL (< 0.028) H* 06/16/17 11:55 - Assessment/Plan 1. NSTEMI 2. S/p CABG 3. Type 2 DM 4. HLP PLAN: - Continue post op care. - Aspirin and statin for life - BB and ACEI once BP allows. - PT once chest tubes out.
[2017-06-18] MEDS: buPROPion HCl 100 MG TAB PO SCH (19:21)
[2017-06-18] MEDS: Famotidine 20 MG TAB PO SCH (19:21)
[2017-06-18] MEDS: Citalopram 20 MG TAB PO SCH (19:21)
[2017-06-18] MEDS: Aspirin 325 MG TAB PO SCH (19:21)
[2017-06-18] MEDS: Docusate 100 MG CAP PO SCH (19:21)
[2017-06-18] MEDS: Insulin Regular 300 UNITS/3 ML VIAL SC PRN (20:33)
[2017-06-18] MEDS: HYDROcodone/Acetaminophen 5/325 mg Tablet PO PRN (20:34)
[2017-06-18 20:54] LABS: Hemoglobin 13.4 g/dL (14.0-18.0)
[2017-06-18] MEDS ORDERED: Famotidine 40 MG/4 ML VIAL SLOW IVP SCH (21:00)
[2017-06-18 21:32] LABS: Potassium 4.3 mmol/L (3.5-5.1)
[2017-06-19] MEDS: CEFAZOLIN/Water 2 GM/20 ML SYRINGE SLOW IVP SCH ×2 (00:14→11:14)
[2017-06-19] MEDS: Ketorolac Tromethamine 30 MG/ML VIAL IVP SCH ×4 (00:15→17:28)
[2017-06-19] MEDS: Sodium Chloride 0.9% 1,000 ML IV SCH (03:18)
[2017-06-19 04:49] LABS: #Lymphocytes 0.8 thou/uL (1.20-3.40); #Neutrophils 6.6 thou/uL (1.40-6.50); %Basophils 0.1 % (0.0-1.0); %Eosinophils 0.1 % (0.0-10.0); %Lymphocytes 9.5 % (21.0-51.0); %Monocytes 11.7 % (0.0-10.0); %Neutrophils 78.6 % (42.0-75.0); Hemoglobin 12.8 g/dL (14.0-18.0); Mean Corpuscular HGB CONC 34.2 g/dL (32.0-36.0); Mean Corpuscular Hemoglobin 33.2 pg (27.0-31.0); Mean Platelet Volume 6.6 fL (7.4-10.4); Platelet Count 162 thou/uL (130-400); RBC Distribution Width 11.7 % (11.5-14.5); Red Blood Cell (RBC) Count 3.86 mill/uL (4.70-6.10); White Blood Cell (WBC) Count 8.4 thou/uL (4.8-10.8)
[2017-06-19 05:13] LABS: Anion Gap 8 mmol/L (10-20); BUN (Urea Nitrogen) 19 mg/dL (8.4-25.7); Calc. Creatinine Clearance 153 mL/min (70-130); Calcium 7.7 mg/dL (7.8-10.44); Carbon Dioxide 27 mmol/L (22-29); Chloride 108 mmol/L (98-107); Estimated GFR-MDRD Greater than 90; Glucose 129 mg/dL (70-105); Potassium 4.1 mmol/L (3.5-5.1); Sodium 139 mmol/L (136-145)
[2017-06-19] MEDS: Insulin Regular 300 UNITS/3 ML VIAL SC PRN (05:39)
[2017-06-19] MEDS: HYDROcodone/Acetaminophen 5/325 mg Tablet PO PRN ×3 (05:40→20:28)
[2017-06-19] MEDS ORDERED: Fentanyl 100 MCG/2 ML VIAL SLOW IVP PRN ×2 (08:48)
[2017-06-19] MEDS ORDERED: Bisacodyl 5 MG TAB PO PRN (08:48)
[2017-06-19] MEDS ORDERED: Guaifenesin DM 100-10/5 ML UDCUP PO PRN (08:48)
[2017-06-19] MEDS ORDERED: Mag-Al 1200 mg/1200 mg/30 ML UDCUP PO PRN (08:48)
[2017-06-19] MEDS ORDERED: diphenhydrAMINE 25 MG CAP PO PRN (08:48)
[2017-06-19] MEDS ORDERED: Acetaminophen 325 MG TAB PO PRN (08:48)
[2017-06-19] MEDS ORDERED: Zolpidem Tartrate 5 MG TAB PO PRN (08:48)
[2017-06-19] MEDS ORDERED: Bisacodyl 10 MG SUPP PR PRN (08:48)
[2017-06-19] MEDS ORDERED: Nitroglycerin 0.4 MG TAB (25 Tab Bottle) SL PRN (08:48)
[2017-06-19] MEDS ORDERED: Ondansetron HCl/PF 4 MG/2 ML Vial IVP PRN (08:48)
[2017-06-19] MEDS ORDERED: Mineral Oil ENEMA PR PRN (08:48)
--- NOTE | 2017-06-19 08:48 | RAD ---
AP CHEST: History: Open heart surgery. Date: 06-19-17 Comparison: 06-18-17 FINDINGS: AP chest demonstrates sternotomy wires seen. Some gas is seen in the pericardial space. Minimal blunting of the right costophrenic angle is seen, compatible with a small right sided pleural effusion. No evidence of pneumothorax is seen. The patient has ACDF placement screws in the lower cervical region, compatible with old cervical spin e surgery. Again, a right subclavian central line is seen. This appears to cross the midline and extends into th e left subclavian venous region. IMPRESSION: Status post thoracotomy changes. The patient has been extubated when compared to the previous radiogr aph from 06-18-17. POS: [facility]
[2017-06-19] MEDS ORDERED: Metoprolol Tartrate 25 MG TAB PO SCH (09:00)
[2017-06-19] MEDS ORDERED: Aspirin 325 MG TAB PO SCH (09:00)
--- NOTE | 2017-06-19 09:42 | PDOC.PN ---
- Subjective Encounter Start Date: 06/19/17 Encounter Start Time: 08:45 Patient seen and examined. No new complaints. No overnight events pt seated in chair chest tube in place - Objective Resuscitation Status: Resuscitation Status FULL:Full Resuscitation MAR Reviewed: Yes Vital Signs & Weight: Vital Signs (12 hours) Temp 06/19/17 08:00 98.1 F 06/19/17 04:00 98.6 F 06/19/17 00:00 98.7 F Weight Weight 245 lb 5.992 oz Most Recent Monitor Data Heart Rate from ECG 82 NIBP 107/60 NIBP BP-Mean 74 Respiration from ECG 15 SpO2 100 I&O: 06/18/17 06/19/17 06/20/17 06:59 06:59 06:59 Intake Total 1742 2060 Output Total 700 2425 140 Balance 1042 -365 -140 Result Diagrams: 06/19/17 04:30 06/19/17 04:30 Additional Labs: Accuchecks 06/19/17 06/19/17 06/19/17 08:44 04:41 00:18 POC Glucose 158 H 128 H 119 H 06/18/17 06/18/17 06/18/17 20:32 15:02 14:18 POC Glucose 149 H 135 H 122 H 06/18/17 06/18/17 06/18/17 13:46 13:05 12:31 POC Glucose 139 H 168 H 138 H 06/18/17 06/18/17 06/18/17 12:03 11:21 10:12 POC Glucose 115 H 123 H 98 Radiology Reviewed by me: Yes (chest xray) EKG Reviewed by me: Yes (nsr) Phys Exam - Physical Examination Constitutional: NAD HEENT: PERRLA, moist MMs, sclera anicteric Neck: no JVD, supple Respiratory: no wheezing, no rales, no rhonchi chest tube in place, central line in place Cardiovascular: RRR, no significant murmur, no rub surgical site with dressing Gastrointestinal: soft, non-tender, no distention, positive bowel sounds Musculoskeletal: no edema, pulses present Neurological: non-focal, normal sensation, moves all 4 limbs Lymphatic: no nodes Psychiatric: normal affect, A&O x 3 Skin: no rash, normal turgor Dx/Plan (1) NSTEMI (non-ST elevated myocardial infarction) Code(s): I21.4 - NON-ST ELEVATION (NSTEMI) MYOCARDIAL INFARCTION Status: Acute (2) Anxiety and depression Code(s): F41.8 - OTHER SPECIFIED ANXIETY DISORDERS Status: Chronic (3) Chronic low back pain Code(s): M54.5 - LOW BACK PAIN; G89.29 - OTHER CHRONIC PAIN Status: Chronic (4) DJD (degenerative joint disease) Code(s): M19.90 - UNSPECIFIED OSTEOARTHRITIS, UNSPECIFIED SITE Status: Chronic (5) Diabetes type 2, controlled Code(s): E11.9 - TYPE 2 DIABETES MELLITUS WITHOUT COMPLICATIONS Status: Chronic (6) OLESYA (obstructive sleep apnea) Code(s): G47.33 - OBSTRUCTIVE SLEEP APNEA (ADULT) (PEDIATRIC) Status: Chronic (7) Obesity (BMI 30.0-34.9) Code(s): E66.9 - OBESITY, UNSPECIFIED Status: Chronic (8) 3-vessel coronary artery disease Status: Acute (9) Dyslipidemia Code(s): E78.5 - HYPERLIPIDEMIA, UNSPECIFIED Status: Chronic (10) S/P CABG (coronary artery bypass graft) Code(s): Z95.1 - PRESENCE OF AORTOCORONARY BYPASS GRAFT Status: Acute - Plan cont current plan of care * post cabg continue care as per cardiology and Ct surgeon * medication reviewed as below * symptomatic treatment * stable now. Review of Systems - Review of Systems Constitutional: negative: fever, chills, sweats, weakness, malaise, other Eyes: negative: Pain, Vision Change, Conjunctivae Inflammation, Eyelid Inflammation, Redness, Other ENT: negative: Ear Pain, Ear Discharge, Nose Pain, Nose Discharge, Nose Congestion, Mouth Pain, Mouth Swelling, Throat Pain, Throat Swelling, Other Respiratory: negative: Cough, Dry, Shortness of Breath, Hemoptysis, SOB with Excertion, Pleuritic Pain, Sputum, Wheezing Cardiovascular: negative: chest pain, palpitations, orthopnea, paroxysmal nocturnal dyspnea, edema, light headedness, other Gastrointestinal: negative: Nausea, Vomiting, Abdominal Pain, Diarrhea, Constipation, Melena, Hematochezia, Other Genitourinary: negative: Dysuria, Frequency, Incontinence, Hematuria, Retention , Other Musculoskeletal: negative: Neck Pain, Shoulder Pain, Arm Pain, Back Pain, Hand Pain, Leg Pain, Foot Pain, Other Skin: negative: Rash, Lesions, Prince, Bruising, Other - Medications/Allergies Allergies/Adverse Reactions: Allergies Allergy/AdvReac Type Severity Reaction Status Date / Time No Known Allergies Allergy Verified 06/16/17 00:22 Medications: Current Medications Acetaminophen (Tylenol) 650 mg PO Q6H PRN PRN Reason: Headache/Fever or Pain Hydrocodone Bitart/Acetaminophen ([place] 5/325) 1 tab PO Q4H PRN PRN Reason: Moderate Pain (4-6) Hydrocodone Bitart/Acetaminophen ([place] 5/325) 2 tab PO Q4H PRN PRN Reason: Severe Pain (7-10) Al Hydroxide/Mg Hydroxide (Maalox) 30 ml PO Q4H PRN PRN Reason: Indigestion Aspirin (Ecotrin) 325 mg PO DAILY [facility] Atorvastatin Calcium (Lipitor) 20 mg PO HS [facility] Bisacodyl (Dulcolax) 10 mg PO Q12H PRN PRN Reason: Constipation Bisacodyl (Dulcolax) 10 mg [place] Q12H PRN PRN Reason: Constipation Clopidogrel Bisulfate (Plavix) 75 mg PO DAILY [facility] Diphenhydramine HCl (Benadryl) 25 mg PO Q6H PRN PRN Reason: Itching & Insomnia or Roshan Maco Famotidine (Pepcid) 20 mg PO BID [facility] Fentanyl (Sublimaze) 25 mcg SLOW IVP Q2H PRN PRN Reason: Moderate breakthrough pain Fentanyl (Sublimaze) 50 mcg SLOW IVP Q2H PRN PRN Reason: Severe breakthrough pain Furosemide (Lasix) 40 mg PO DAILY [facility] Guaifenesin/Dextromethorphan (Robitussin Dm) 15 ml PO Q4H PRN PRN Reason: Cough Ketorolac Tromethamine (Toradol) 15 mg IVP Q6HR [facility] Stop: 06/21/17 08:01 Metoprolol Tartrate (Lopressor) 6.25 mg PO BID [facility] Mineral Oil (Fleet Mineral Oil) 133 ml [place] DAILYPRN PRN PRN Reason: Constipation Nitroglycerin (Nitrostat) 0.4 mg SL Q5MIN PRN PRN Reason: Chest Pain Ondansetron HCl (Zofran) 4 mg IVP Q6H PRN PRN Reason: Nausea/Vomiting Zolpidem Tartrate (Ambien) 5 mg PO HSPRN PRN PRN Reason: Insomnia
[2017-06-19] MEDS: Famotidine 20 MG TAB PO SCH ×2 (10:35→20:25)
[2017-06-19] MEDS: Aspirin 325 mg Enteric Coated Tablet PO SCH (10:35)
[2017-06-19] MEDS: Clopidogrel Bisulfate 75 MG TAB PO SCH (10:35)
--- NOTE | 2017-06-19 15:30 | PDOC.CTH ---
Cardiology Progress Note - Subjective He is feeling better today. - Objective Vital Signs Temp Pulse Ox 06/19/17 12:00 98.3 F 06/19/17 10:38 99 06/19/17 08:00 98.1 F 06/19/17 04:00 98.6 F Weight 245 lb 5.992 oz 06/18/17 06/19/17 06/20/17 06:59 06:59 06:59 Intake Total 1742 2060 360 Output Total 700 2425 410 Balance 1042 -365 -50 - Physical Examination General/Neuro: alert & oriented x3, NAD Neck: no JVD present Lungs: unlabored respirations Heart: RRR, other: (Softer 1 component rub.) Abdomen: NT/ND Extremities: + edema B (1+) - Telemetry Telemetry Rhythm: NSR - Labs Result Diagrams: 06/19/17 04:30 06/19/17 04:30 Troponin/CKMB CK-MB (CK-2) 57.2 ng/mL (0-6.6) H* 06/16/17 11:55 Troponin I 21.386 ng/mL (< 0.028) H* 06/16/17 11:55 - Assessment/Plan 1. NSTEMI 2. S/P CABG 3. Type 2 DM 4. HLP PLAN: - Continue post op care. - Aspirin and statin for life - On low dose BB. - ACEI if BP allows tomorrow. - PT once chest tubes out.
[2017-06-19] MEDS: Metoprolol Tartrate 25 MG TAB PO SCH (20:24)
[2017-06-19] MEDS ORDERED: Atorvastatin Calcium 20 MG TAB PO SCH (21:00)
[2017-06-20] MEDS: Ketorolac Tromethamine 30 MG/ML VIAL IVP SCH ×5 (01:57→17:34)
[2017-06-20] MEDS: HYDROcodone/Acetaminophen 5/325 mg Tablet PO PRN ×2 (04:12→21:37)
[2017-06-20] MEDS ORDERED: Metolazone 5 MG TAB PO SCH (07:30)
--- NOTE | 2017-06-20 09:32 | PDOC.PN ---
- Subjective Encounter Start Date: 06/20/17 Encounter Start Time: 09:30 Patient seen and examined. No new complaints. No overnight events - Objective Resuscitation Status: Resuscitation Status FULL:Full Resuscitation MAR Reviewed: Yes Vital Signs & Weight: Vital Signs (12 hours) Temp Pulse Resp BP Pulse Ox 06/20/17 08:00 98.5 F 92 20 100/61 93 L 06/20/17 05:29 94 L 06/20/17 04:00 100.2 F H 102 H 16 111/64 93 L 06/20/17 00:00 99.2 F 90 12 129/66 95 Weight Weight 252 lb 11.2 oz Most Recent Monitor Data Heart Rate from ECG 79 NIBP 110/62 NIBP BP-Mean 74 Respiration from ECG 10 SpO2 100 I&O: 06/19/17 06/20/17 06/21/17 06:59 06:59 06:59 Intake Total 2060 1050 Output Total 2425 1435 Balance -365 -385 Result Diagrams: 06/19/17 04:30 06/19/17 04:30 EKG Reviewed by me: Yes Phys Exam - Physical Examination Constitutional: NAD HEENT: PERRLA, moist MMs, sclera anicteric Neck: no JVD, supple Respiratory: no wheezing, no rales, no rhonchi Cardiovascular: RRR, no significant murmur, no rub Gastrointestinal: soft, non-tender, no distention, positive bowel sounds Musculoskeletal: no edema, pulses present Neurological: non-focal, normal sensation, moves all 4 limbs Psychiatric: normal affect, A&O x 3 Skin: no rash, normal turgor Dx/Plan (1) NSTEMI (non-ST elevated myocardial infarction) Code(s): I21.4 - NON-ST ELEVATION (NSTEMI) MYOCARDIAL INFARCTION Status: Acute (2) Anxiety and depression Code(s): F41.8 - OTHER SPECIFIED ANXIETY DISORDERS Status: Chronic (3) Chronic low back pain Code(s): M54.5 - LOW BACK PAIN; G89.29 - OTHER CHRONIC PAIN Status: Chronic (4) DJD (degenerative joint disease) Code(s): M19.90 - UNSPECIFIED OSTEOARTHRITIS, UNSPECIFIED SITE Status: Chronic (5) Diabetes type 2, controlled Code(s): E11.9 - TYPE 2 DIABETES MELLITUS WITHOUT COMPLICATIONS Status: Chronic (6) OLESYA (obstructive sleep apnea) Code(s): G47.33 - OBSTRUCTIVE SLEEP APNEA (ADULT) (PEDIATRIC) Status: Chronic (7) Obesity (BMI 30.0-34.9) Code(s): E66.9 - OBESITY, UNSPECIFIED Status: Chronic (8) 3-vessel coronary artery disease Status: Acute (9) Dyslipidemia Code(s): E78.5 - HYPERLIPIDEMIA, UNSPECIFIED Status: Chronic (10) S/P CABG (coronary artery bypass graft) Code(s): Z95.1 - PRESENCE OF AORTOCORONARY BYPASS GRAFT Status: Acute - Plan cont current plan of care * continue cardiac rehab inpt * post cabg treatment * stable and improving * chest tube out * expecting discharge tomorrow * medication reviewed as below * symptomatic treatment. Review of Systems - Review of Systems ENT: negative: Ear Pain, Ear Discharge, Nose Pain, Nose Discharge, Nose Congestion, Mouth Pain, Mouth Swelling, Throat Pain, Throat Swelling, Other Respiratory: negative: Cough, Dry, Shortness of Breath, Hemoptysis, SOB with Excertion, Pleuritic Pain, Sputum, Wheezing Cardiovascular: negative: chest pain, palpitations, orthopnea, paroxysmal nocturnal dyspnea, edema, light headedness, other Gastrointestinal: negative: Nausea, Vomiting, Abdominal Pain, Diarrhea, Constipation, Melena, Hematochezia, Other Genitourinary: negative: Dysuria, Frequency, Incontinence, Hematuria, Retention , Other Musculoskeletal: negative: Neck Pain, Shoulder Pain, Arm Pain, Back Pain, Hand Pain, Leg Pain, Foot Pain, Other Skin: negative: Rash, Lesions, Prince, Bruising, Other - Medications/Allergies Allergies/Adverse Reactions: Allergies Allergy/AdvReac Type Severity Reaction Status Date / Time No Known Allergies Allergy Verified 06/16/17 00:22 Medications: Current Medications Acetaminophen (Tylenol) 650 mg PO Q6H PRN PRN Reason: Headache/Fever or Pain Hydrocodone Bitart/Acetaminophen ([place] 5/325) 1 tab PO Q4H PRN PRN Reason: Moderate Pain (4-6) Last Admin: 06/20/17 04:12 Dose: 1 tab Hydrocodone Bitart/Acetaminophen ([place] 5/325) 2 tab PO Q4H PRN PRN Reason: Severe Pain (7-10) Last Admin: 06/19/17 11:17 Dose: 2 tab Al Hydroxide/Mg Hydroxide (Maalox) 30 ml PO Q4H PRN PRN Reason: Indigestion Aspirin (Ecotrin) 325 mg PO DAILY [facility] Last Admin: 06/19/17 10:35 Dose: 325 mg Atorvastatin Calcium (Lipitor) 20 mg PO HS [facility] Last Admin: 06/19/17 20:25 Dose: 20 mg Bisacodyl (Dulcolax) 10 mg PO Q12H PRN PRN Reason: Constipation Bisacodyl (Dulcolax) 10 mg [place] Q12H PRN PRN Reason: Constipation Clopidogrel Bisulfate (Plavix) 75 mg PO DAILY [facility] Last Admin: 06/19/17 10:35 Dose: 75 mg Diphenhydramine HCl (Benadryl) 25 mg PO Q6H PRN PRN Reason: Itching & Insomnia or Roshan Maco Famotidine (Pepcid) 20 mg PO BID [facility] Last Admin: 06/19/17 20:25 Dose: 20 mg Fentanyl (Sublimaze) 25 mcg SLOW IVP Q2H PRN PRN Reason: Moderate breakthrough pain Fentanyl (Sublimaze) 50 mcg SLOW IVP Q2H PRN PRN Reason: Severe breakthrough pain Furosemide (Lasix) 40 mg PO DAILY [facility] Guaifenesin/Dextromethorphan (Robitussin Dm) 15 ml PO Q4H PRN PRN Reason: Cough Ketorolac Tromethamine (Toradol) 15 mg IVP Q6HR [facility] Stop: 06/21/17 08:01 Last Admin: 06/20/17 05:29 Dose: 15 mg Metoprolol Tartrate (Lopressor) 12.5 mg PO BID [facility] Last Admin: 06/19/17 20:24 Dose: 12.5 mg Mineral Oil (Fleet Mineral Oil) 133 ml [place] DAILYPRN PRN PRN Reason: Constipation Nitroglycerin (Nitrostat) 0.4 mg SL Q5MIN PRN PRN Reason: Chest Pain Ondansetron HCl (Zofran) 4 mg IVP Q6H PRN PRN Reason: Nausea/Vomiting Zolpidem Tartrate (Ambien) 5 mg PO HSPRN PRN PRN Reason: Insomnia
[2017-06-20] MEDS: Furosemide 40 MG TAB PO SCH (09:33)
[2017-06-20] MEDS: Aspirin 325 mg Enteric Coated Tablet PO SCH (09:33)
[2017-06-20] MEDS: Metoprolol Tartrate 25 MG TAB PO SCH ×2 (09:33→21:32)
[2017-06-20] MEDS: Clopidogrel Bisulfate 75 MG TAB PO SCH (09:33)
[2017-06-20] MEDS: Famotidine 20 MG TAB PO SCH ×2 (13:23→21:34)
[2017-06-20] MEDS ORDERED: Atorvastatin Calcium 40 MG TAB PO SCH (21:00)
[2017-06-21] MEDS: Ketorolac Tromethamine 30 MG/ML VIAL IVP SCH ×2 (00:24→05:54)
[2017-06-21] MEDS: Clopidogrel Bisulfate 75 MG TAB PO SCH (08:17)
[2017-06-21] MEDS: Aspirin 325 mg Enteric Coated Tablet PO SCH (08:17)
[2017-06-21] MEDS: Metoprolol Tartrate 25 MG TAB PO SCH (08:17)
[2017-06-21] MEDS: Furosemide 40 MG TAB PO SCH (08:17)
[2017-06-21] MEDS: HYDROcodone/Acetaminophen 5/325 mg Tablet PO PRN (08:17)
[2017-06-21] MEDS: Famotidine 20 MG TAB PO SCH (08:18)
[2017-06-21 08:39] VITALS: BP 115/65; TEMP 98.2
--- NOTE | 2017-06-21 09:31 | DIS ---
PRIMARY CARE PHYSICIAN: Dr. Talha Montero DATE OF ADMISSION: 06/15/2017 DATE OF DISCHARGE: 06/21/2017 DISCHARGE DISPOSITION: Home. PRIMARY DISCHARGE DIAGNOSES: 1. Non-ST elevation myocardial infarction. 2. Three-vessel coronary artery disease. 3. Status post coronary artery bypass graft. SECONDARY DISCHARGE DIAGNOSES: Obstructive sleep apnea, obesity with BMI 32, dyslipidemia, degenerat paul joint disease, diabetes type 2, chronic low back pain, anxiety and depression. PRIMARY PROCEDURE/OPERATION: Cardiac catheterization was done by Dr. Godfrey and found with 3-vess el CAD. Dr. Khan did CABG. RADIOLOGICAL INVESTIGATION: Echocardiography during this admission showed EF 55-60%, mild to moderat e MR and TR. Chest x-ray was done after surgery. SIGNIFICANT LABS: WBC 8.4, hemoglobin 12.8, platelet 162. INR 1.3. Sodium 139, potassium 4.1, BUN 19, creatinine 0.85, calcium 7.7, LDL 121, CK-MB 57.2, troponin I 21.38, AST 53, ALT 34, alkaline darlene sphatase 54. Hemoglobin A1c 4.9. DISCHARGE MEDICATIONS: Aspirin 325 mg p.o. daily, Lipitor 40 mg p.o. at bedtime, Wellbutrin 100 mg p .o. daily, Celexa 40 mg p.o. daily, Plavix 75 mg p.o. daily, Pepcid 20 mg p.o. b.i.d., [place] 5 one or two tablets q.8 hours p.r.n., Lopressor 12.5 mg p.o. b.i.d. CONTRAINDICATIONS: None. CODE STATUS: FULL CODE. INPATIENT CONSULTANTS: Dr. Godfrey was consulted for non-ST elevation MT, who did cardiac catheter ization. Dr. Khan was consulted for CABG. TEST RESULTS PENDING ON DISCHARGE: None. ALLERGIES: No known drug allergy. DISCHARGE PLAN: Post hospital, the patient will follow up with primary care physician on 06/28/2017 at 9:20 a.m. The patient will follow up with Dr. Khan, Dr. Shirley as instructed, outpatient cardiac rehab also scheduled. HOSPITAL COURSE: A 56-year-old male who was admitted by Dr. Roe Fajardo. Please see his H&P for fur ther details. This patient came to emergency room with complaint of acute onset of chest pain. He w as diagnosed with non-ST elevation MT. He was initially evaluated at [facility] and subsequently he was transferred to our hospital. His troponin was significantly abnormal. His ches t x-ray was normal. His EKG was also showing nonspecific ST-T changes. He was admitted to telemetry floor. Cardiology was consulted. Echocardiography was done which showed diastolic dysfunction. Mary Kate cano did cardiac catheterization and patient found with 3-vessel coronary artery disease and brandan mmended CABG. Dr. Khan did a CABG and after that the patient was getting post-CABG protocol treatme nt in CCU and subsequently transferred to telemetry floor. The patient is doing very well. His surg ical site is clean and healthy. The patient does not have any problem. He is also doing very well w ith Cardiac Rehab while in hospital. Today cardiovascular surgeon cleared him for discharge. All ne w medication prescription sent to his pharmacy. PHYSICAL EXAMINATION: Patient is seen and examined at bedside today. VITAL SIGNS: Currently, temperature 98.2, pulse 75, respiratory rate 16, saturation 92% on room air, blood pressure 115/65, weight 247 pounds. GENERAL: The patient is currently alert, oriented x3. NECK: Supple, no JVD, no thyromegaly, no carotid bruit. LUNGS: Clear to auscultation without any rhonchi or rales. CARDIAC: S1, S2 regular without any murmur. ABDOMEN: Soft, bowel sounds present, nontender, nondistended. No organomegaly, no mass, no suprapub ic tenderness. BACK: Unremarkable. No CVA tenderness. EXTREMITIES: Upper extremity passive movement of all joints are normal. Lower extremity, no edema. NEUROLOGIC: Nonfocal examination. Surgical site is clean and healthy. All review of system reviewed with him and negative. [facility]. The patient is medically stable for discharge today.
--- NOTE | 2017-06-22 13:12 | EKG ---
Test Reason : Blood Pressure : / mmHG Vent. Rate : 060 BPM Atrial Rate : 060 BPM P-R Int : 168 ms QRS Dur : 084 ms QT Int : 386 ms P-R-T Axes : 054 -17 077 degrees QTc Int : 386 ms Normal sinus rhythm Nonspecific T wave abnormality Abnormal ECG Confirmed by CHIARA POWELL ([id number]), editor book PALMER KENNEDY ([id number]) on 06/22/2017 1:11:57 PM Referred By: Confirmed By:CHIARA POWELL
--- NOTE | 2017-06-25 20:01 | EKG ---
Test Reason : POST CABG Blood Pressure : / mmHG Vent. Rate : 072 BPM Atrial Rate : 072 BPM P-R Int : 186 ms QRS Dur : 094 ms QT Int : 424 ms P-R-T Axes : 050 -55 048 degrees QTc Int : 464 ms Normal sinus rhythm Left axis deviation Prolonged QT Abnormal ECG When compared with ECG of 16-JUN-2017 04:03, (Unconfirmed) No significant change was found Confirmed by CLAU MONSON ([id number]) on 06/25/2017 8:00:43 PM Referred By: BASIL Confirmed By:CLAU MONSON
--- NOTE | 2017-06-27 14:19 | OP ---
DATE OF PROCEDURE: 06/18/2017 PREOPERATIVE DIAGNOSIS: Coronary artery disease. POSTOPERATIVE DIAGNOSIS: Coronary artery disease. PROCEDURES: Coronary bypass graft x5, good quality [place] to a 1.5 mm diseased LAD, good quality left radial to a 2 mm diagonal, saphenous vein good quality to an OM 1.25 mm, right posterolateral 1.25 mm , right PDA 2 mm. PROCEDURE IN DETAIL: After adequate anesthesia had been obtained, the patient was prepped and draped . I performed a left radial artery harvest while Dr. Restrepo performed endovascular vein harvest from the left greater saphenous vein. After I harvested the radial artery, ensuring good collateral flow, wound was closed in layers. Radial artery was treated with papaverine. I then performed a me mango sternotomy harvesting the left internal mammary artery. The patient was heparinized, mammary di vided distally. It was passed posterior to the thymus gland. Aorta and right atrium were cannulated , following which vessels were inspected for grafting after cardiopulmonary bypass was instituted. T he aorta was cross-clamped. A liter of [place] cardioplegic solution was then given and distal anas tomoses were all completed. Crossclamp was removed and the partial occluding clamp placed, following which 2 proximal anastomoses were performed to the aortic root with the OM vein graft and the PDA ve in graft. The radial artery was then anastomosed to the OM, vein graft about a centimeter from the a ortic root, following which the partial occluding clamp was removed. The posterolateral vein graft w as then anastomosed to the side of the PDA vein graft. After inspecting distal anastomosis, the brii ent was weaned from cardiopulmonary bypass, cannulas removed, and protamine was given systemically. Mediastinal and left pleural drains were placed, following which the sternum was reapproximated with #7 interrupted wire using vancomycin paste on the sternal edges, platelet rich blood, and platelet-po or plasma. Subcutaneous tissue and skin were closed in layers and the patient is to be taken to the ICU in guarded condition.
[2017-07-02 17:53] LABS: Actual Bicarbonate (HCO3a) 25.1 mEq/L (22-26); Base Excess (BEa) 0.6 mEq/L (0 (+/-) 2.5); CO2 Tension 39.9 mmHg (35.0-45.0); Hematocrit-ABG 38.5 % (42.0-52.0); Hemoglobin (Hb) 13.5 g/dL (14.0-18.0); O2 Tension (PaO2) 314.6 mmHg (80.0-100.0); pH, Arterial 7.42 (7.35-7.45)
[2017-07-02 17:54] LABS: Base Excess (BEa) -1.2 mEq/L (0 (+/-) 2.5); CO2 Tension 36.8 mmHg (35.0-45.0); pH, Arterial 7.41 (7.35-7.45)
[2017-07-02 17:54] LABS: Analyzer IN Cardio OR; Calcium, Ionized 1.1 mmol/L (1.12-1.30); Puncture Site ALINE
[2017-07-02 17:55] LABS: Analyzer IN Cardio OR; Calcium, Ionized 1.1 mmol/L (1.12-1.30); Hemoglobin (Hb) 13.3 g/dL (14.0-18.0); Puncture Site ALINE
[2017-07-02 17:57] LABS: Actual Bicarbonate (HCO3a) 44.2 mEq/L (22-26); Base Excess (BEa) 16.4 mEq/L (0 (+/-) 2.5); CO2 Tension 73.7 mmHg (35.0-45.0); Hematocrit-ABG 24.2 % (42.0-52.0); Hemoglobin (Hb) 10.4 g/dL (14.0-18.0)
[2017-07-02 17:58] LABS: Actual Bicarbonate (HCO3v) 28 mEq/L (22-26); Analyzer IN Cardio OR; Base Excess 0.9 mEq/L (0 (+/- 2.5)); pH (venous) 7.33 (7.35-7.45)
[2017-07-02 17:58] LABS: Analyzer IN Cardio OR; Calcium, Ionized 0.9 mmol/L (1.12-1.30); Puncture Site ALINE
[2017-07-02 17:59] LABS: Calcium, Ionized 0.97 mmol/L (1.16-1.32); Chloride (ABG LAB) 103 mmol/L (98-106); Hematocrit-VBG 29.1 % (39-50); Hemoglobin (Hb) 10.7 g/dL (13.1-17.2); Potassium - ABG Lab 4.8 mmol/L (3.70-5.30); Sodium 139.8 mmol/L (133-146)
[2017-07-02 17:59] LABS: Actual Bicarbonate (HCO3a) 26.7 mEq/L (22-26); Base Excess (BEa) 0.8 mEq/L (0 (+/-) 2.5); CO2 Tension 48.8 mmHg (35.0-45.0); Hematocrit-ABG 30.5 % (42.0-52.0); Hemoglobin (Hb) 11.1 g/dL (14.0-18.0); pH, Arterial 7.36 (7.35-7.45)
[2017-07-02 18:00] LABS: Actual Bicarbonate (HCO3a) 25.7 mEq/L (22-26); Base Excess (BEa) -0.3 mEq/L (0 (+/-) 2.5); CO2 Tension 47.9 mmHg (35.0-45.0); Hematocrit-ABG 39.5 % (42.0-52.0); Hemoglobin (Hb) 10.9 g/dL (14.0-18.0); pH, Arterial 7.35 (7.35-7.45)
[2017-07-02 18:00] LABS: Analyzer IN Cardio OR; Calcium, Ionized 1.1 mmol/L (1.12-1.30); Puncture Site ALINE
[2017-07-02 18:01] LABS: Base Excess (BEa) -1.2 mEq/L (0 (+/-) 2.5); CO2 Tension 41.9 mmHg (35.0-45.0); O2 Tension (PaO2) 282.9 mmHg (80.0-100.0); pH, Arterial 7.38 (7.35-7.45)
[2017-07-02 18:01] LABS: Analyzer IN Cardio OR; Puncture Site ALINE
[2017-07-02 18:02] LABS: Analyzer IN Cardio OR; Calcium, Ionized 1.1 mmol/L (1.12-1.30); Hematocrit-ABG 30.8 % (42.0-52.0); Puncture Site ALINE
[2017-07-16 15:10] LABS: Actual Bicarbonate (HCO3a) 23.4 mEq/L (22-26); Base Excess (BEa) -1.6 mEq/L (0 (+/-) 2.5); CO2 Tension 40.3 mmHg (35.0-45.0); Hematocrit-ABG 35.1 % (42.0-52.0); Hemoglobin (Hb) 13.2 g/dL (14.0-18.0); O2 Tension (PaO2) 286.1 mmHg (80.0-100.0); pH, Arterial 7.38 (7.35-7.45)
[2017-07-16 15:11] LABS: Analyzer IN Cardio OR; Calcium, Ionized 1.1 mmol/L (1.12-1.30); Puncture Site ALINE
--- NOTE | 2017-07-18 19:32 | EKG ---
Test Reason : Blood Pressure : / mmHG Vent. Rate : 063 BPM Atrial Rate : 063 BPM P-R Int : 196 ms QRS Dur : 098 ms QT Int : 404 ms P-R-T Axes : 055 -36 039 degrees QTc Int : 413 ms Normal sinus rhythm Left axis deviation Abnormal ECG When compared with ECG of 15-JUN-2017 21:23, (Unconfirmed) No significant change was found Confirmed by DR. Apryl WHITTAKER ([id number]) on 07/18/2017 7:32:18 PM Referred By: JORDAN Confirmed By:DR. Apryl WHITTAKER
== END 2017-06-21 10:07 | disposition home or self-care (01) | DRG 234 ==
LOC: ERS 21:20 → OBSVTOIN 23:11 → 2SW 23:11 → 2NO 06-16 → CCU 06-18 10:50 → 2NO 06-19 15:56
PROVIDERS: ADMIT Internal Medicine; ATTEND Internal Medicine
PROC: 4A023N7 Measurement of Cardiac Sampling and Pressure, Left Heart, Percutaneous Approach (ICD-10-PCS; 2017-06-17)
PROC: B2111ZZ Fluoroscopy of Multiple Coronary Arteries using Low Osmolar Contrast (ICD-10-PCS; 2017-06-17)
PROC: B2151ZZ Fluoroscopy of Left Heart using Low Osmolar Contrast (ICD-10-PCS; 2017-06-17)
PROC: 02100Z9 Bypass Coronary Artery, One Artery from Left Internal Mammary, Open Approach (ICD-10-PCS; principal; 2017-06-18)
PROC: 021209W Bypass Coronary Artery, Three Arteries from Aorta with Autologous Venous Tissue, Open Approach (ICD-10-PCS; 2017-06-18)
PROC: 02100AW Bypass Coronary Artery, One Artery from Aorta with Autologous Arterial Tissue, Open Approach (ICD-10-PCS; 2017-06-18)
PROC: 03BC0ZZ Excision of Left Radial Artery, Open Approach (ICD-10-PCS; 2017-06-18)
PROC: 06BQ4ZZ Excision of Left Saphenous Vein, Percutaneous Endoscopic Approach (ICD-10-PCS; 2017-06-18)
PROC: 5A1221Z Performance of Cardiac Output, Continuous (ICD-10-PCS; 2017-06-18)
DX: I21.4 Non-ST elevation (NSTEMI) myocardial infarction (principal); Z68.32 Body mass index [BMI] 32.0-32.9, adult; E11.9 Type 2 diabetes mellitus without complications; E66.9 Obesity, unspecified; I25.10 Atherosclerotic heart disease of native coronary artery without angina pectoris; E78.5 Hyperlipidemia, unspecified; G47.33 Obstructive sleep apnea (adult) (pediatric); M19.90 Unspecified osteoarthritis, unspecified site; F32.9 Major depressive disorder, single episode, unspecified; Z87.891 Personal history of nicotine dependence; F41.9 Anxiety disorder, unspecified; M54.5 Low back pain; Z82.49 Family history of ischemic heart disease and other diseases of the circulatory system; Z98.84 Bariatric surgery status
CPT/HCPCS: 36415; 36416; 71045; 76942; 80048; 80053; 80061; 82553; 82805; 83036; 83735; 84484; 85025; 85610; 85730; 86850; 86900; 86901; 93005; 93010; 93306; 93458; 93798; 94002; 94760; 99152; A4216; C1760; C1769; J1642; J1644; J1650; J1815; J1885; J2001; J2250; J2270; J2370; J2440; J2704; J2720; J3010; J3370; J3475; J3480; J7050; P9045; S0017

== ENCOUNTER 2017-11-22 09:18 | Outpatient (CLI) | payer BC | END 2017-11-22 09:19 | disposition home or self-care (01) | LOC: BICRAD 09:18 | PROVIDERS: ATTEND Family Medicine | DX: M46.1 Sacroiliitis, not elsewhere classified (principal); E78.2 Mixed hyperlipidemia; E11.9 Type 2 diabetes mellitus without complications | CPT/HCPCS: 36415; 72170; 72202; 80053; 80061; 83036; 84270; 84403; 84443; 85025 ==

== ENCOUNTER 2024-12-14 15:49 | Emergency (ER) | payer OTHER ==
[~2024-12-14 15:49] MED LIST: Iopamidol-370 76% 500 ML MDV (1 ML CHARGE) ONE
[2024-12-14 16:45] LABS: #Basophils 0.07 10x3/uL (0.0-0.2); #Eosinophils 0.27 10x3/uL (0.0-0.7); #Monocytes 0.56 10x3/uL (0.11-0.59); #Neutrophils 4.79 10x3/uL (1.40-6.50); %Basophils 1.0 % (0.0-1.0); %Eosinophils 3.7 % (0.0-10.0); %Lymphocytes 21.1 % (21.0-51.0); %Monocytes 7.7 % (0.0-10.0); %Neutrophils 66.2 % (42.0-75.0); Hematocrit 44.3 % (42.0-52.0); Hemoglobin 15.7 g/dL (14.0-18.0); Mean Corpuscular Hemoglobin 32.5 pg (27.0-31.0); Mean Corpuscular Volume 91.7 fL (78.0-98.0); Platelet Count 237 10x3/uL (130-400); Red Blood Cell (RBC) Count 4.83 mill/uL (4.70-6.10); White Blood Cell (WBC) Count 7.24 10x3/uL (4.8-10.8)
[2024-12-14 16:58] LABS: INR-International Normal Ratio 0.9; Prothrombin Time 12.7 sec (12.0-14.7)
[2024-12-14 16:59] LABS: PTT 27.9 sec (22.9-36.1)
[2024-12-14 17:12] LABS: ALT (SGPT) 30 U/L (Less than 45); AST (SGOT) 48 U/L (11-34); Albumin 4.0 g/dL (3.1-4.5); Alkaline Phosphatase 59 U/L (40-110); Anion Gap 16 mmol/L (10-20); BUN (Urea Nitrogen) 15 mg/dL (8.4-25.7); Bilirubin, Total 0.3 mg/dL (0.3-1.2); Calc. Creatinine Clearance 0 mL/min (70-130); Calcium 9.1 mg/dL (7.8-10.44); Carbon Dioxide 27 mmol/L (23-31); Chloride 102 mmol/L (98-107); Globulin 3.6 g/dL (2.4-3.5); Glucose 108 mg/dL (80-115); Potassium 4.6 mmol/L (3.5-5.1); Sodium 140 mmol/L (136-145)
== END 2024-12-14 20:23 | disposition home or self-care (01) ==
LOC: ERS 15:49
DX: I73.9 Peripheral vascular disease, unspecified (principal)
CPT/HCPCS: 75635; 80053; 85025; 85610; 85730; 93005; Q9967

== ENCOUNTER 2024-12-22 13:00 | Inpatient (IN) | payer OTHER ==
[2024-12-22 15:08] LABS: #Basophils 0.05 10x3/uL (0.0-0.2); #Eosinophils 0.40 10x3/uL (0.0-0.7); #Monocytes 0.54 10x3/uL (0.11-0.59); #Neutrophils 4.38 10x3/uL (1.40-6.50); %Basophils 0.7 % (0.0-1.0); %Eosinophils 5.7 % (0.0-10.0); %Lymphocytes 23.7 % (21.0-51.0); %Monocytes 7.6 % (0.0-10.0); %Neutrophils 62.0 % (42.0-75.0); Hematocrit 44.6 % (42.0-52.0); Hemoglobin 15.8 g/dL (14.0-18.0); Mean Corpuscular Hemoglobin 32.9 pg (27.0-31.0); Mean Corpuscular Volume 92.9 fL (78.0-98.0); Platelet Count 203 10x3/uL (130-400); Red Blood Cell (RBC) Count 4.80 mill/uL (4.70-6.10); White Blood Cell (WBC) Count 7.06 10x3/uL (4.8-10.8)
[2024-12-22 15:21] LABS: Anion Gap 15 mmol/L (10-20); BUN (Urea Nitrogen) 12 mg/dL (8.4-25.7); Calc. Creatinine Clearance 0 mL/min (70-130); Calcium 8.9 mg/dL (7.8-10.44); Carbon Dioxide 22 mmol/L (23-31); Chloride 106 mmol/L (98-107); Glucose 98 mg/dL (80-115); Potassium 4.1 mmol/L (3.5-5.1); Sodium 139 mmol/L (136-145)
[2024-12-23] MEDS ORDERED: CEFAZOLIN 2 GM VIAL ONE (11:24)
[2024-12-23] MEDS ORDERED: Heparin 5,000 UNITS/ML VIAL ONE (11:24)
[2024-12-23] MEDS ORDERED: Rocuronium Bromide 10 MG/ML (10ML VIAL) ONE (11:26)
[2024-12-23] MEDS ORDERED: PROPOFOL 20 ML ONE (11:27)
[2024-12-23] MEDS ORDERED: fentaNYL PF 100 MCG/2 ML SYRINGE ONE (11:27)
[2024-12-23] MEDS ORDERED: PHENYLEPHRINE-NS 100 MCG/ML 10 ML SYRINGE ONE (11:55)
[2024-12-23] MEDS ORDERED: SUGAMMADEX SODIUM 200 MG/2 ML VIAL ONE (13:54)
[2024-12-23] MEDS ORDERED: HYDROmorphone 0.5 MG/0.5 ML SYRINGE ONE ×4 (14:33→17:17)
[2024-12-23] MEDS ORDERED: Acetaminophen 325 MG TAB PO PRN (18:44)
[2024-12-23] MEDS ORDERED: Ondansetron PF 4 MG/2 ML Vial IVP PRN (18:44)
[2024-12-23] MEDS ORDERED: hydrALAZINE 20 MG/ML VIAL SLOW IVP PRN (18:44)
[2024-12-23 22:04] VITALS: BMI 33.4
[2024-12-24] MEDS: NIFEdipine XL 60 MG ER.TAB PO SCH (08:27)
[2024-12-25 03:44] VITALS: TEMP 98.6
[2024-12-25 09:37] VITALS: BP 146/76
== END 2024-12-25 10:50 | disposition home or self-care (01) | DRG 254 ==
LOC: SURG A 12-23 09:55 → PCU 12-23 18:50
PROVIDERS: ADMIT Thoracic Surgery (Cardiothoracic Vascular Surgery); ATTEND Thoracic Surgery (Cardiothoracic Vascular Surgery)
PROC: 041N09Q Bypass Left Popliteal Artery to Lower Extremity Artery with Autologous Venous Tissue, Open Approach (ICD-10-PCS; principal; 2024-12-23)
PROC: 06BP4ZZ Excision of Right Saphenous Vein, Percutaneous Endoscopic Approach (ICD-10-PCS; 2024-12-23)
PROC: 3E033XZ Introduction of Vasopressor into Peripheral Vein, Percutaneous Approach (ICD-10-PCS; 2024-12-23)
DX: I74.3 Embolism and thrombosis of arteries of the lower extremities (principal); I72.4 Aneurysm of artery of lower extremity; I73.9 Peripheral vascular disease, unspecified; Z79.899 Other long term (current) drug therapy; Z79.82 Long term (current) use of aspirin; E11.9 Type 2 diabetes mellitus without complications; E78.5 Hyperlipidemia, unspecified; G47.33 Obstructive sleep apnea (adult) (pediatric); F41.9 Anxiety disorder, unspecified; Z86.16 Personal history of COVID-19; I25.10 Atherosclerotic heart disease of native coronary artery without angina pectoris; E66.9 Obesity, unspecified; Z87.891 Personal history of nicotine dependence
CPT/HCPCS: 80048; 85025; 86850; 86900; 86901; J0169; J0665; J1171; J1642; J1644; J2250; J2704; J2720; J7030

== ENCOUNTER 2024-12-22 14:24 | Outpatient (CLI) | payer OTHER | END 2024-12-22 14:25 | disposition home or self-care (01) | LOC: LABBT 14:24 | PROVIDERS: ATTEND Thoracic Surgery (Cardiothoracic Vascular Surgery) | DX: Z01.810 Encounter for preprocedural cardiovascular examination (principal); I73.9 Peripheral vascular disease, unspecified | CPT/HCPCS: 93005; 93010 ==